=== PATIENT | male | born 1965 | race Two or more races ===

== ENCOUNTER 2016-11-15 08:30 | Outpatient (RCR) | payer OTHER ==
[~2016-11-15 08:30] MED LIST: /LOR25TA PO; AMIT50TA2 OR; ANAS0.12 OR; BENA10TA2 OR; CLEO150C PO; HYDR-3716 PO; LIDO5DIS TD; LYRI75CA PO; MULTIVIT PO; NORT25CA2 PO; TOPI50TA4 PO; TRAM50TA2 PO
== END 2016-11-16 ==
LOC: M PT 08:30
PROVIDERS: ATTEND Orthopaedic Surgery
DX: Z51.89 Encounter for other specified aftercare (principal); M25.551 Pain in right hip

== ENCOUNTER → 2017-05-19 | Outpatient (CLI) | payer OTHER ==
[~2017-05-19] MED LIST changes: -TOPI50TA4 PO; +TOPI50TA9 PO
--- NOTE | 2017-05-19 07:34 | REP ---
Clinical: Bladder dysfunction. Technique: Real time yañez scale ultrasound examination using curved array transducer. Findings: The bilateral kidneys are normal in contour, size, echogenicity, and reniform shape out hydronephrosis, nephrolithiasis, cystic or mass lesion. No perinephric fluid collections are identified. Right kidney measures 9.0 x 4.3 x 4.9 cm. Left kidney measures 10.0 x 4.7 x 4.5 cm. The bladder is unremarkable and without wall thickening or mass lesion. Prevoid bladder measures 9.0 x 8.5 x 7.9 cm (395 ml); postvoid bladder measures 2.4 x 1.7 x 3.2 cm (9 ml). Postvoid residual equals 2.1%. Impression: Normal renal and bladder ultrasound. Signed by Humberto Thomas MD 05/19/2017 07:25 A
== END ==
LOC: M RAD 06:41
PROVIDERS: ATTEND Nurse Practitioner Women's Health
DX: R39.11 Hesitancy of micturition (principal); N39.8 Other specified disorders of urinary system

== ENCOUNTER 2017-09-09 15:03 | Inpatient (IN) | payer OTHER ==
[~2017-09-09] VITALS: Ht 165.1 cm; Wt 61.3 kg
[2017-09-09] MEDS ORDERED: TAMSULOSIN (15:12)
[2017-09-09] MEDS ORDERED: MELO15TA4 PO (15:12)
[2017-09-09] MEDS ORDERED: NS 1,000 ML IV ONE (15:45)
[2017-09-09 15:52] LABS: BASO # 0.1 10^3/uL (0.0-0.2); BASO % 0.7 % (0.0-1.0); EOS # 0.2 10^3/uL (0.0-0.50); EOS % 1.4 % (0.0-3.0); LYMPH # 3.3 10^3/uL (1.5-4.5); LYMPH % 28.5 % (24.0-44.0); MEAN CORPUSCULAR HEMOGLOBIN 32.3 pg (27.0-33.0); MEAN CORPUSCULAR HGB CONC 34.5 g/dl (32.0-36.5); MEAN CORPUSCULAR VOLUME 93.4 fl (80.0-96.0); MONO # 0.8 10^3/uL (0.0-0.8); MONO % 6.5 % (0.0-5.0); NEUTROPHILS # 7.1 10^3/uL (1.8-7.7); NEUTROPHILS % 61.9 % (36.0-66.0); PLATELET COUNT, AUTOMATED 300 10^3/uL (150-450); RED CELL DISTRIBUTION WIDTH 13.3 % (11.5-14.5); WHITE BLOOD COUNT 11.5 10^3/uL (4.0-10.0)
--- NOTE | 2017-09-09 15:59 | REP ---
Clinical: Cerebrovascular accident. Altered mental status . Comparison: None . Findings: The ventricles, sulci, and cisterns are normal in position and appearance. Wright-white differentiation is maintained. No acute intracranial hemorrhage, mass/mass effect, pathology or trauma/injury. No evidence for acute infarction. No extra-axial fluid collection. Calvarium is intact. Paranasal sinuses and mastoid air cells are clear. Impression: Normal noncontrast head CT. No evidence for acute intracranial pathology or trauma/injury. Signed by Humberto Thomas MD 09/09/2017 03:50 P
[2017-09-09 16:01] LABS: INR 0.94
[2017-09-09 16:04] LABS: ANION GAP 6 MEQ/L (8-16); BLOOD UREA NITROGEN 30 MG/DL (7-18); CALCIUM LEVEL 8.5 MG/DL (8.5-10.1); CARBON DIOXIDE LEVEL 27 MEQ/L (21-32); CHLORIDE LEVEL 108 MEQ/L (98-107); CREATININE FOR GFR 1.27 MG/DL (0.70-1.30); GLOMERULAR FILTRATION RATE > 60.0 (>56); GLUCOSE, FASTING 101 MG/DL (70-105); POTASSIUM SERUM 3.8 MEQ/L (3.5-5.1); SODIUM LEVEL 141 MEQ/L (136-145)
[2017-09-09] MEDS ORDERED: ASPIRIN 81 MG CHEW TABLET PO ONE (16:15)
--- NOTE | 2017-09-09 17:12 | ECGEPIP ---
Stationary ECG Study [facility] - ED Test Date: 2017-09-09 Pat Name: JOHNATHON WATKINS Department: ED Room: - Gender: M Surveillance Investigator: dar : 1965 Requested By: Ophelia Gonzalez Order Number: [id number] Reading MD: Ophelia Gonzalez Measurements Intervals [place] Rate: 95 P: 65 IN: 196 QRS: 50 QRSD: 110 T: 61 QT: 329 QTc: 414 Interpretive Statements SINUS RHYTHM INDETERMINATE AXIS DELAYED R PROGRESSION NO PRIOR FOR COMPARISON Electronically Signed On 09-09-2017 17:12:14 EST by Ophelia Gonzalez
[2017-09-09] MEDS ORDERED: BISACODYL 5 MG TAB PO PRN (17:30)
--- NOTE | 2017-09-09 17:40 | REP ---
Clinical: Abnormal left-sided sensations Comparison: None Technique: Axial 3-D [id number] noncontrast source images with 3-D multiplanar re-formations. Findings: Vasculature to the bilateral hemispheres appears symmetric and normal without areas of attenuation to suggest occlusion or stenosis. No evidence for arteriovenous malformation or aneurysm. No obvious abnormality. Impression: No obvious significant abnormality. Signed by Humberto Thomas MD 09/09/2017 05:32 P
[2017-09-09] MEDS ORDERED: NORT75CA2 PO (17:56)
[2017-09-09] MEDS ORDERED: LYRI150C PO (17:56)
[2017-09-09] MEDS ORDERED: FLOM5CAP PO (17:56)
[2017-09-09] MEDS ORDERED: TOPI100T9 PO (17:56)
--- NOTE | 2017-09-09 17:57 | REP ---
Clinical: Abnormal left-sided sensations. Technique: Noncontrast MRI of the brain using standard sequencing. Findings: The ventricles, sulci, and cisterns are normal in appearance and symmetric. Wright-white differentiation is maintained. No signal intensity abnormalities are identified. No evidence for acute infarction, hemorrhage or mass. No extra-axial collection. Midbrain and midline structures are normal. Sinuses are clear. Orbits are symmetric and normal. Impression: Normal noncontrast MRI of the brain. Signed by Humberto Thomas MD 09/09/2017 05:49 P
[2017-09-09] MEDS ORDERED: BACITAB PO (17:58)
[2017-09-09] MEDS ORDERED: VITMTA PO (17:58)
--- NOTE | 2017-09-09 18:57 | HPEPDOC ---
General Date of Admission Sep 09, 2017 at 17:21 Primary Care Physician: Darrel Robbins [facility] Attending Physician: TICO MATHEWS MD Chief Complaint The patient is a 52-year-old male admitted with a reason for visit of Stroke. Source: Patient, Family Exam Limitations: No limitations Timing/Duration: 24 hours Severity: Mild History of Present Illness Patient is a 52-year-old white male with a past medical history of voiding dysfunction, chronic right groin pain from surgical injury, presents with numbness on his left side of his body. According to patient yesterday when he woke up in the morning he was not feeling well. He stated that he was a little bit dizzy, but denies night nausea, denies headache, denies blurred vision. He took a nap from 12 PM until 2 PM. When he awoke he noticed that his entire left side of his body was numb. The numbness extended from his great toe on his left side to his left eyebrow. It was specifically worse in his fingertips and worse on the lateral side of his left leg. His right side of body felt fine. Patient did not notice any other symptoms besides the numbness. He had normal muscle strength in bilateral upper extremity and lower extremity. He had intact sensation in upper and lower extremities. He denied weakness, denied headaches, denied blurred vision, loss of bowel or bladder function, denies garbled speech , denied difficulty finding words, denied any rashes, denied any abdominal pain. Patient states that everything was normal throughout the entire day of yesterday with exception of the numbness and was left-sided body. When he awoke up this morning he still have a numbing sensation on his left side of body. He presented to the ED this evening because he he feels that the numbness should have disappeared by now. Only other symptoms of note is a slight tingling sensation in his left fingers and left toes. Everything else is normal and at baseline on him. He denied any history of head trauma, he also denies any history of spinal trauma. Denies recent travels, denied any tick bites, denied any past medical history of STI infections. Denies any difficulty swallowing, denies any difficulty chewing. He denies difficulty walking. MRI and CT were both negative and ED. Home Medications Scheduled Acetaminophen/Hydrocodone (Hydrocodone/Acetaminophen 7.5-325 mg) 1 Tab Tab, 1 TAB PO TID, (Reported) Aspirin (Aspirin EC) 81 Mg Tabec, 81 MG PO DAILY Atorvastatin Calcium (Atorvastatin Calcium) 20 Mg Tab, 20 MG PO QHS Lactobacillus Acidophilus (Bacid) 1 Tab Tab, 1 TAB PO QHS, (Reported) Multivitamins *[facility] STOCKED* (Thera M Plus *[facility] STOCKED*) 1 Tab Tab, 1 TAB PO QHS , (Reported) Nortriptyline HCl (Nortriptyline HCl) 75 Mg Cap, 150 MG PO BID, (Reported) Pregabalin (Lyrica) 150 Mg Cap, 150 MG PO BID, (Reported) Tamsulosin Hydrochloride (Flomax) 0.4 Mg Cap, 0.4 MG PO QHS, (Reported) Topiramate (Topiramate) 100 Mg Tab, 100 MG PO BID, (Reported) Allergies Coded Allergies: Sulfa Drugs (Verified Allergy, Intermediate, BACTRIM- HIVES, 09/09/17) Sulfa Drugs Cross Reactors (Verified Allergy, Intermediate, BACTRIM- HIVES , 09/09/17) Penicillins (Verified Adverse Reaction, Mild, N/V, 09/09/17) Penicillins Cross Reactors (Verified Adverse Reaction, Mild, N/V, 09/09/17 ) Past Medical History Medical History Chronic right groin pain, voiding difficulty Surgical History Appendectomy, hernia repair 2, cholecystectomy, removal of adhesions from his stomach Family History Father has history of carotid artery disease and bypass surgery Social History * Smoker: current smoker (1-1/2 pack a day) Alcohol: occationally Drugs: denies Recent Travel/Sick Contacts: Denies: Recent travel, Recent sick contacts Pets in the home: Cat(s) (2 cats, and) Review of Systems Constitutional: Denies: Chills, Fever, Night Sweats Eyes: Denies: Pain, Vision change ENT: Denies: Head Aches, Ear Pain, Dysphagia Skin: Denies: Rash, Lesions, Breakdown Pulmonary: Denies: Dyspnea, Cough Cardiovascular: Denies: Chest Pain, Palpitations, Orthopnea, Paroxysmal Noc. Dyspnea, Lt Headedness Gastrointestinal: Denies: Nausea, Vomiting, Abdominal Pain, Diarrhea Genitourinary: Denies: Dysuria, Frequency, Incontinence, Retention Hematologic: Denies: Bruising, Bleeding Excessively Musculoskeletal: Denies: Neck Pain, Back Pain, Joint Pain, Muscle Pain, Spasms Neurological: Reports: Numbness (left sided numbness), Denies: Weakness, Change in speech, Confusion, Seizures Psych: Reports: Mood Normal, Denies: Depression, Memory Issues Physical Examination General Exam: Positive: Alert, No Acute Distress Eye Exam: Positive: PERRLA, Conjunctiva & lids normal, EOMI, Negative: Sclera icteric ENT Exam: Positive: Atraumatic, Mucous membr. moist/pink, Pharynx Normal Neck Exam: Positive: Supple, Negative: JVD, thyromegaly Chest Exam: Positive: Clear to auscultation, Normal air movement Heart Exam: Positive: Rate Normal, Regular Rhythm, Normal S1, Normal S2, Negative: Murmurs, Rubs Telemetry: Positive: No significant arrhythmia Abdomen Exam: Positive: Normal bowel sounds, Soft, Negative: Tenderness, Hepatospenomegaly Extremity Exam: Positive: Normal pulses, Negative: Clubbing, Cyanosis, Edema Skin Exam: Positive: Nl turgor and temperature, Negative: Breakdown, Lesion Neuro Exam: Positive: Normal Gait, Normal Speech, Cranial Nerves 3-12 NL, Reflexes 2+ Psych Exam: Positive: Mental status NL, Mood NL, Oriented x 3 Vital Signs Vital Signs Date Time Temp Pulse Resp B/P (MAP) Pulse Ox O2 Delivery O2 Flow Rate FiO2 09/09/17 16:39 144/102 (116) 09/09/17 16:33 80 97 09/09/17 15:04 97.9 16 Room Air Laboratory Data Labs 24H Laboratory Tests 2 09/09/17 15:32: Immature Granulocyte % (Auto) 1.0H, White Blood Count 11.5H, Red Blood Count 4.71, Hemoglobin 15.2, Hematocrit 44.0, Mean Corpuscular Volume 93.4, Mean Corpuscular Hemoglobin 32.3, Mean Corpuscular Hemoglobin Concent 34.5, Red Cell Distribution Width 13.3, Platelet Count 300, Neutrophils (%) (Auto) 61.9, Lymphocytes (%) (Auto) 28.5, Monocytes (%) (Auto) 6.5H, Eosinophils (%) (Auto) 1.4, Basophils (%) (Auto) 0.7, Neutrophils # (Auto) 7.1, Lymphocytes # (Auto) 3.3, Monocytes # (Auto) 0.8, Eosinophils # (Auto) 0.2, Basophils # (Auto) 0.1, Immature Granulocyte # (Auto) 0.1H, Nucleated Red Blood Cells % (auto) 0.0, Prothrombin Time 12.7, Prothromb Time International Ratio 0.94, Activated Partial Thromboplast Time 30.1, Anion Gap 6L, Glomerular Filtration Rate > 60.0 , Blood Urea Nitrogen 30H, Creatinine 1.27, Sodium Level 141, Potassium Level 3.8, Chloride Level 108H, Carbon Dioxide Level 27, Calcium Level 8.5, Total Creatine Kinase 105, Creatine Kinase MB 1.7, Creatine Kinase MB Relative Index 1.61, Troponin I < 0.02 CBC/BMP Laboratory Tests 09/09/17 15:32 Red Blood Count 4.71, Mean Corpuscular Volume 93.4, Mean Corpuscular Hemoglobin 32.3, Mean Corpuscular Hemoglobin Concent 34.5, Red Cell Distribution Width 13.3 , Neutrophils (%) (Auto) 61.9, Lymphocytes (%) (Auto) 28.5, Monocytes (%) (Auto ) 6.5 H, Eosinophils (%) (Auto) 1.4, Basophils (%) (Auto) 0.7, Neutrophils # ( Auto) 7.1, Lymphocytes # (Auto) 3.3, Monocytes # (Auto) 0.8, Eosinophils # (Auto ) 0.2, Basophils # (Auto) 0.1, Calcium Level 8.5, Total Creatine Kinase 105 Assessment/Plan TIA/Possible stroke -Unlikely given the fact that MRI is negative, MRA negative and , CT was negative. However may need to repeat MRi after 24 hours -Patient has no focal neurological deficit -will send lyme titers and CHAPIN level for sarcoid -Consider consultation neurology Infection -afebrile however he does have a white count of 11.5. Most likely reactive. -Order blood cultures Voiding difficulty -States that he voids 2-3 times a day, please monitor urine output to prevent patient from having acute kidney injury or hospital stay -Might consider intermittent catheterization should patient have difficulty voiding Plan / VTE VTE Prophylaxis Ordered?: Yes THERESA GARCIA DO Sep 09, 2017 18:48 TICO MATHEWS MD Sep 12, 2017 13:24
[2017-09-09 20:00] VITALS: BP 135/86
[2017-09-09] MEDS: NORTRIPTYLINE 25 MG CAP PO SCH (22:07)
[2017-09-09] MEDS: ANEXSIA, NORCO 7.5MG/325MG TABLET(HYDROCODONE/APAP) PO SCH (22:08)
[2017-09-09] MEDS: cloNIDine 0.1 MG TAB PO SCH (22:09)
[2017-09-09] MEDS: ATORVASTATIN 20 MG TAB PO SCH (22:10)
[2017-09-09] MEDS: SENOKOT S TAB PO SCH (22:10)
[2017-09-09] MEDS: TAMSULOSIN 0.4 MG CAP PO SCH (22:10)
[2017-09-09] MEDS: PREGABALIN 75 MG CAP(LYRICA) PO SCH (22:10)
[2017-09-09] MEDS: TOPIRAMATE (TopAMAX) 100 MG TAB PO SCH (22:11)
[2017-09-10] VITALS (7 sets, daily range): BP systolic 111–127; BP diastolic 57–78
[2017-09-10 05:13] LABS: BASO # 0.1 10^3/uL (0.0-0.2); BASO % 0.6 % (0.0-1.0); EOS # 0.2 10^3/uL (0.0-0.50); EOS % 1.9 % (0.0-3.0); IMMATURE GRANULOCYTE % 0.7 % (0-0); LYMPH # 2.9 10^3/uL (1.5-4.5); MEAN CORPUSCULAR HEMOGLOBIN 31.9 pg (27.0-33.0); MEAN CORPUSCULAR HGB CONC 33.8 g/dl (32.0-36.5); MEAN CORPUSCULAR VOLUME 94.4 fl (80.0-96.0); MONO # 0.8 10^3/uL (0.0-0.8); MONO % 6.9 % (0.0-5.0); NEUTROPHILS # 6.8 10^3/uL (1.8-7.7); NEUTROPHILS % 62.9 % (36.0-66.0); PLATELET COUNT, AUTOMATED 255 10^3/uL (150-450); RED CELL DISTRIBUTION WIDTH 13.5 % (11.5-14.5); WHITE BLOOD COUNT 10.8 10^3/uL (4.0-10.0)
[2017-09-10 05:32] LABS: ANION GAP 7 MEQ/L (8-16); BLOOD UREA NITROGEN 29 MG/DL (7-18); CALCIUM LEVEL 7.9 MG/DL (8.5-10.1); CARBON DIOXIDE LEVEL 24 MEQ/L (21-32); CHLORIDE LEVEL 111 MEQ/L (98-107); CREATININE FOR GFR 1.05 MG/DL (0.70-1.30); GLOMERULAR FILTRATION RATE > 60.0 (>56); GLUCOSE, FASTING 105 MG/DL (70-105); POTASSIUM SERUM 3.8 MEQ/L (3.5-5.1); SODIUM LEVEL 142 MEQ/L (136-145)
[2017-09-10] MEDS ORDERED: ACETAMINOPHEN 325 MG TAB PO PRN (08:45)
[2017-09-10] MEDS: NORTRIPTYLINE 25 MG CAP PO SCH (08:57)
[2017-09-10] MEDS: ASPIRIN 81 MG ENTERIC TAB PO SCH (08:58)
[2017-09-10] MEDS: SENOKOT S TAB PO SCH ×2 (08:58→21:35)
[2017-09-10] MEDS: TOPIRAMATE (TopAMAX) 100 MG TAB PO SCH ×2 (08:58→21:34)
[2017-09-10] MEDS: PREGABALIN 75 MG CAP(LYRICA) PO SCH ×2 (08:58→21:35)
[2017-09-10] MEDS: ANEXSIA, NORCO 7.5MG/325MG TABLET(HYDROCODONE/APAP) PO SCH ×3 (08:59→21:33)
[2017-09-10] MEDS: ENOXAPARIN 40 MG/0.4 ML SYRINGE (J1650) SC SCH (08:59)
[2017-09-10] MEDS: cloNIDine 0.1 MG TAB PO SCH ×3 (08:59→21:34)
[2017-09-10] MEDS ORDERED: NS 1,000 ML IV ONE (12:00)
--- NOTE | 2017-09-10 12:10 | IPNPDOC ---
Date Seen The patient was seen on 09/10/17. Progress Note Subjective: Patient is a 52-year-old white male with a past medical history of voiding dysfunction, chronic right groin pain from surgical injury, presented with numbness on his left side of his body. That started on 09/08/17 after waking up from a nap. The numbness is located to his left side, with a tingling sensation in his fingers and toes. Patient numbness remained constant throughout the day of delivery presented to the ED. This morning patient still has the same unilateral numbness has been unchanged since his original presentation. His muscle strength is still intact. Patient is neurologically intact. Patient's sensation is intact. On evaluation this morning patient did admit to a slight headache, however he denied blurry vision, denied a patent sensation in his head, denied muscle or body aches, denied any changes in vision, denied double vision. He was having breakfast and denied any swallowing difficulty, denied any difficulty speech. I ordered some Tylenol for patient headache. I plan to reevaluate him that assessment. At this point all his labs and images have been normal with the exception of an elevated BUN of 29. Objective: Physical exam: VITAL SIGNS: Please see below. GENERAL: Alert, in no acute distress, he does admit to a slight headache, orientated 3 very pleasant HEENT: Pupils round and equally reactive to light, atraumatic head, mucous membrane is moist and pink, oropharynx is normal, neck is supple, no JVD noted no thyromegaly CARDIOVASCULAR: S1 and S2 present within normal remits, no murmurs rubs or gallops detected RESPIRATORY: Clinically to auscultate anteriorly bilaterally no wheezes, rhonchi no wheezing. ABDOMINAL: Soft nontender bowel sounds present in all 4 quadrants EXTREMITIES: Soft, no cyanosis, no edema, warm NEUROLOGICAL: 5 out of 5 muscle strength intact sensation, PSYCHOLOGICAL: Appropriate mood, appropriate affect LABORATORY DATA: Please see below. MICROBIOLOGY: Please see below. IMAGING: Brain MRI: Normal noncontrast MRI of the brain. Head CT: Normal noncontrast head CT. No evidence for acute intracranial pathology or trauma/injury Assessment and Plan: Numbness and tingling of left side of face, left upper and lower extremity - possibly 2/2 complicated migraine, possibly 2/2 TIA, less likely 2/2 acute CVA -Pt symptoms is unchanged -Patient complains of headache, Tylenol was prescribe. Non concern about subarachnoid hematoma -Unlikely given the fact that MRI is negative, CT was negative -Patient has no focal neurological deficit -Neurology Consulted Elevated WBC - likely 2/2 reactive etiology, less likely 2/2 infection -Afebrile however he does have a white count of 10.8 -Blood cultures Pending Voiding difficulty -States that he voids 2-3 times a day -No issues throughout hospitalization Chronic abdominal pain - c/w home medications DVT prophylaxis - c/w Lovenox VS, I&O, 24H, Fishbone Vital Signs/I&O Vital Signs Date Time Temp Pulse Resp B/P (MAP) Pulse Ox O2 Delivery O2 Flow Rate FiO2 09/10/17 09:29 20 09/10/17 08:59 Room Air 09/10/17 08:59 116/71 09/10/17 08:00 98.0 55 99 I&O- Last 24 Hours up to 6 AM 09/10/17 06:00 Intake Total 1350 ml Output Total 600 ml Balance 750 ml Laboratory Data 24H LABS Laboratory Tests 2 09/09/17 15:32: Immature Granulocyte % (Auto) 1.0H, White Blood Count 11.5H, Red Blood Count 4.71, Hemoglobin 15.2, Hematocrit 44.0, Mean Corpuscular Volume 93.4, Mean Corpuscular Hemoglobin 32.3, Mean Corpuscular Hemoglobin Concent 34.5, Red Cell Distribution Width 13.3, Platelet Count 300, Neutrophils (%) (Auto) 61.9, Lymphocytes (%) (Auto) 28.5, Monocytes (%) (Auto) 6.5H, Eosinophils (%) (Auto) 1.4, Basophils (%) (Auto) 0.7, Neutrophils # (Auto) 7.1, Lymphocytes # (Auto) 3.3, Monocytes # (Auto) 0.8, Eosinophils # (Auto) 0.2, Basophils # (Auto) 0.1, Immature Granulocyte # (Auto) 0.1H, Nucleated Red Blood Cells % (auto) 0.0, Prothrombin Time 12.7, Prothromb Time International Ratio 0.94, Activated Partial Thromboplast Time 30.1, Anion Gap 6L, Glomerular Filtration Rate > 60.0 , Blood Urea Nitrogen 30H, Creatinine 1.27, Sodium Level 141, Potassium Level 3.8, Chloride Level 108H, Carbon Dioxide Level 27, Calcium Level 8.5, Total Creatine Kinase 105, Creatine Kinase MB 1.7, Creatine Kinase MB Relative Index 1.61, Troponin I < 0.02 09/09/17 19:26: Ammonia 25 09/10/17 04:45: Immature Granulocyte % (Auto) 0.7H, White Blood Count 10.8H, Red Blood Count 4.32, Hemoglobin 13.8L, Hematocrit 40.8L, Mean Corpuscular Volume 94.4, Mean Corpuscular Hemoglobin 31.9, Mean Corpuscular Hemoglobin Concent 33.8, Red Cell Distribution Width 13.5, Platelet Count 255, Neutrophils (%) (Auto) 62.9, Lymphocytes (%) (Auto) 27.0, Monocytes (%) (Auto) 6.9H, Eosinophils (%) (Auto) 1.9, Basophils (%) (Auto) 0.6, Neutrophils # (Auto) 6.8, Lymphocytes # (Auto) 2.9, Monocytes # (Auto) 0.8, Eosinophils # (Auto) 0.2, Basophils # (Auto) 0.1, Immature Granulocyte # (Auto) 0.1H, Nucleated Red Blood Cells % (auto) 0.0, Anion Gap 7L, Glomerular Filtration Rate > 60.0, Blood Urea Nitrogen 29H, Creatinine 1.05, Sodium Level 142, Potassium Level 3.8, Chloride Level 111H, Carbon Dioxide Level 24, Calcium Level 7.9L CBC/BMP Laboratory Tests 09/09/17 15:32 Red Blood Count 4.71, Mean Corpuscular Volume 93.4, Mean Corpuscular Hemoglobin 32.3, Mean Corpuscular Hemoglobin Concent 34.5, Red Cell Distribution Width 13.3 , Neutrophils (%) (Auto) 61.9, Lymphocytes (%) (Auto) 28.5, Monocytes (%) (Auto ) 6.5 H, Eosinophils (%) (Auto) 1.4, Basophils (%) (Auto) 0.7, Neutrophils # ( Auto) 7.1, Lymphocytes # (Auto) 3.3, Monocytes # (Auto) 0.8, Eosinophils # (Auto ) 0.2, Basophils # (Auto) 0.1, Calcium Level 8.5, Total Creatine Kinase 105 09/10/17 04:45 Red Blood Count 4.32, Mean Corpuscular Volume 94.4, Mean Corpuscular Hemoglobin 31.9, Mean Corpuscular Hemoglobin Concent 33.8, Red Cell Distribution Width 13.5 , Neutrophils (%) (Auto) 62.9, Lymphocytes (%) (Auto) 27.0, Monocytes (%) (Auto ) 6.9 H, Eosinophils (%) (Auto) 1.9, Basophils (%) (Auto) 0.6, Neutrophils # ( Auto) 6.8, Lymphocytes # (Auto) 2.9, Monocytes # (Auto) 0.8, Eosinophils # (Auto ) 0.2, Basophils # (Auto) 0.1, Calcium Level 7.9 L Microbiology Microbiology 09/09/17 Blood Culture, Received Pending GME ATTESTATION GME ATTESTATION My faculty preceptor for this patient encounter was physically present during the encounter and was fully available. All aspects of the patient interview, examination, medical decision making process, and medical care plan development were reviewed and approved by the faculty preceptor. The faculty preceptor is aware and concurs with the plan as stated in the body of this note and will attest to such by his/her cosignature. ATTENDING NOTE I, Caroline Green, have both independently examined this patient as well as reviewed the documentation. I have discussed in detail with the resident the findings and plan of treatment as documented in the residents documentation. I will continue to follow the patient and offer further guidance to the patients care as necessary during this hospital stay. THERESA GARCIA DO Sep 10, 2017 11:19 CAROLINE GREEN MD Sep 11, 2017 15:16
[2017-09-10] MEDS: TAMSULOSIN 0.4 MG CAP PO SCH (21:35)
[2017-09-10] MEDS: ATORVASTATIN 20 MG TAB PO SCH (21:35)
[2017-09-11 04:00] VITALS: BP 103/68
[2017-09-11 05:06] LABS: BASO # 0.1 10^3/uL (0.0-0.2); BASO % 0.6 % (0.0-1.0); EOS # 0.2 10^3/uL (0.0-0.50); EOS % 1.9 % (0.0-3.0); IMMATURE GRANULOCYTE % 0.7 % (0-0); LYMPH # 2.9 10^3/uL (1.5-4.5); LYMPH % 28.3 % (24.0-44.0); MEAN CORPUSCULAR HEMOGLOBIN 31.9 pg (27.0-33.0); MEAN CORPUSCULAR HGB CONC 33.3 g/dl (32.0-36.5); MEAN CORPUSCULAR VOLUME 95.7 fl (80.0-96.0); MONO # 0.8 10^3/uL (0.0-0.8); MONO % 7.5 % (0.0-5.0); NEUTROPHILS # 6.2 10^3/uL (1.8-7.7); PLATELET COUNT, AUTOMATED 244 10^3/uL (150-450); RED CELL DISTRIBUTION WIDTH 13.9 % (11.5-14.5); WHITE BLOOD COUNT 10.1 10^3/uL (4.0-10.0)
[2017-09-11 05:25] LABS: ANION GAP 6 MEQ/L (8-16); BLOOD UREA NITROGEN 30 MG/DL (7-18); CALCIUM LEVEL 7.8 MG/DL (8.5-10.1); CARBON DIOXIDE LEVEL 24 MEQ/L (21-32); CHLORIDE LEVEL 113 MEQ/L (98-107); CREATININE FOR GFR 1.21 MG/DL (0.70-1.30); GLOMERULAR FILTRATION RATE > 60.0 (>56); GLUCOSE, FASTING 98 MG/DL (70-105); SODIUM LEVEL 143 MEQ/L (136-145)
[2017-09-11 08:00] VITALS: BP 126/75
[2017-09-11] MEDS ORDERED: ATOR1TAB21 PO (08:21)
[2017-09-11] MEDS ORDERED: ASPI81TAEC PO (08:21)
[2017-09-11 09:00] VITALS: BP 126/75
[2017-09-11] MEDS: ENOXAPARIN 40 MG/0.4 ML SYRINGE (J1650) SC SCH (09:00)
[2017-09-11] MEDS: cloNIDine 0.1 MG TAB PO SCH (09:00)
[2017-09-11] MEDS: SENOKOT S TAB PO SCH (09:05)
[2017-09-11] MEDS: PREGABALIN 75 MG CAP(LYRICA) PO SCH (09:05)
[2017-09-11] MEDS: TOPIRAMATE (TopAMAX) 100 MG TAB PO SCH (09:06)
[2017-09-11] MEDS: ANEXSIA, NORCO 7.5MG/325MG TABLET(HYDROCODONE/APAP) PO SCH (09:07)
[2017-09-11] MEDS: ASPIRIN 81 MG ENTERIC TAB PO SCH (09:07)
--- NOTE | 2017-09-11 18:12 | DSES ---
DATE OF ADMISSION: 09/09/2017 DATE OF DISCHARGE: 09/11/2017 ATTENDING PHYSICIAN: Caroline Dawkins MD. PRIMARY CARE PHYSICIAN: Darrel Robbins. REFERRING PHYSICIAN: None. CONSULTING PHYSICIAN: Dr. Lao. CONDITION ON DISCHARGE: Stable. FINAL DIAGNOSIS: Left-sided facial numbness and tingling and left upper and lower extremity numbness and tingling, likely secondary to complex migraine with aura. PROCEDURES: None. HISTORY OF PRESENT ILLNESS: The patient is a 52-year-old male with a past medical history of urinary retention, chronic right groin pain, who presented with numbness on the left side of his body, including his face. The patient was evaluated in the emergency room, received an MRI and MRA of his brain which were negative. The patient was admitted to the hospitalist service for possible transient ischemic attack (TIA) versus migraine headache. HOSPITAL COURSE: 1. Numbness and tingling of face, left upper extremity and left lower extremity: Likely secondary to complicated migraine with aura, less likely secondary to TIA. Less likely secondary to cerebrovascular accident (CVA). The patient presented to symptoms that had been going on since . Had been persistent since that point. Physical is without any neurologic deficit. The patient does note subjective numbness and tingling of the left side of his face. The patient received imaging via CT head, MRI and MRA of his head, which have been negative. CT scan is essentially normal noncontrast head CT. No evidence for intracranial pathology or trauma. MRI of head reveals normal, noncontrast MRI of the brain, and the MRA revealed no obvious significant abnormalities. The patient has been put on telemetry monitoring for greater than 24 hours duration. Has been negative for any events. The patient has been put on aspirin 81 mg, as well as atorvastatin. He will be continuing these medications as an outpatient. Neurology, Dr. Lao, has evaluated the patient and we suspect that this is likely secondary to complicated migraine with aura. Nevertheless, the patient will be following up as an outpatient and has been cleared for discharge. 2. Leukocytosis, likely reactive in etiology: Review of systems has been negative for any source of infection. The patient has not been having any fevers. We will continue to hold off on antibiotics. Has been trending down throughout the hospital course. 3. Voiding difficulty: The patient is not having any issues throughout the hospitalization. His kidney function has remained normal. Will continue to followup as an outpatient with his primary care provider. 4. Deep venous thrombosis (DVT) prophylaxis: The patient has been put on Lovenox subcutaneous. 5. Chronic abdominal pain. Continue with home medications including topiramate, Lyrica, nortriptyline, and acetaminophen with hydrocodone. DISCHARGE MEDICATIONS: The patient has been discharged home with the following medication list: - aspirin 81 mg by mouth daily - atorvastatin 20 mg by mouth daily - acetaminophen/hydrocodone 7.5/325 one tablet by mouth three times a day as needed for pain - lactobacillus with pseudobacillus one tablet by mouth at bedtime - multivitamin one tablet by mouth at bedtime - nortriptyline 150 mg by mouth twice a day - Lyrica 150 mg by mouth twice a day - tamsulosin 0.4 mg by mouth at bedtime - topiramate 100 mg by mouth twice a day Stopped medications include meloxicam 15 mg by mouth at bedtime. DISCHARGE INSTRUCTIONS: Patient has been advised to followup with his primary care provider who is Dr. Darrel Robbins, as well as neurology, Dr. Lao, within the next seven days. He has been advised to remain compliant with treatment plan and medications, and to return to the emergency room if he experiences any problems. TIME SPENT ON DISCHARGE: Greater than 35 minutes.
[2017-09-11] MEDS ORDERED: NORTRIPTYLINE 25 MG CAP PO SCH (21:00)
--- NOTE | 2017-09-13 12:25 | CR ---
DATE OF CONSULTATION: REFERRING PROVIDER: Dr. Caroline Dawkins REASON FOR CONSULTATION: Possible complex migraine versus transient ischemic attack (TIA). The patient is a 52-year-old male with past medical history significant for chronic groin pain after an inguinal hernia surgery. The patient presents with the chief complaint of experiencing one of his worst headaches. The patient started to not feel well, took a nap and woke up a few days ago with symptoms of left face, arm and leg paresthesias. The patient states that he agrees with the doctors that his facial weakness is present of the left lower face, sparing the forehead. The patient did have an MRI which was negative for any stroke. He did have the worst headache the night of his admission. It was throbbing in nature. The patient likely had a complex migraine resulting in hemiparesis of the left hand and face with hypoesthesia to light touch of the left face, arm and leg. During the hospital stay, the headache has significantly improved. The symptoms have all significantly improved. The patient has been on telemetry monitoring. He was placed on aspirin 81 mg. He is a smoker. He has been counseled to quit. He denies having any other stroke-like symptoms. ALLERGIES: - SULFA - PENICILLIN PRESENT MEDICATIONS: - Nortriptyline 75 mg tablets by mouth twice a day - Lyrica 150 mg by mouth twice a day - tamsulosin 0.4 mg by mouth at bedtime - topiramate 100 mg by mouth twice a day - multivitamin by mouth daily - meloxicam 15 mg by mouth at bedtime - lactobacillus 1 tablet by mouth at bedtime - hydrocodone/acetaminophen 7.5/325 mg by mouth three times a day as needed for pain SOCIAL HISTORY: The patient currently smokes one and a half-pack of tobacco per day. Denies use of any recreational drugs or alcohol. FAMILY HISTORY: Noncontributory. PAST MEDICAL HISTORY: Chronic right flank pain. Voiding difficulty. PAST SURGICAL HISTORY: 1. Appendectomy. 2. Hernia repair times two. 3. Cholecystectomy. 4, Removal of adhesions from his stomach. REVIEW OF SYSTEMS: 14-point review of systems negative except as per history of present illness (HPI). PHYSICAL EXAMINATION: Blood pressure 117/74, pulse rate 62, respiratory rate is 18, temperature is 98.8 degrees Fahrenheit, oxygenation 97% on room air. The patient is awake, alert, oriented to person, place and time. Speech, language comprehension and repetition are intact. Pupils are 3 mm round and reactive to light. V1, V2, and V3 is slightly decreased to light touch involving the left V2-V3 in a patchy distribution. V1 is spared. Biceps sensation of the left arm and leg appear to be within normal limits. There is no pronator drift. Strength is 5/5 including bilateral deltoid, biceps, triceps, handgrip, iliopsoas, quadriceps, anterior tibialis. Deep tendon reflexes are 2s throughout. Babinski signs are absent. Sensory is intact to light touch in all four extremities at this time. Coordination: Normal [id number], without any signs of ataxia or dysmetria. Gait normal. ASSESSMENT: 52-year-old male with transient left facial paresthesias and slight weakness of the left lower face and hand weakness with a negative MRI with one of his worst headaches, consistent with a hemiplegic migraine/complex migraine. PLAN: Continue aspirin 81 mg daily. Discontinue tobacco use. The patient will continue with Nortriptyline, topiramate and Lyrica, which all have properties to treat migraines. 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 The patient can followup in [facility] upon discharge.
[2017-09-14 00:06] LABS: Lyme Disease IgG/IgM Antibodie <0.91 ISR (0.00-0.90); Lyme Disease IgM Ab Quantitati <0.80 index (0.00-0.79)
== END 2017-09-11 11:35 | disposition home or self-care (01) | DRG 54 ==
LOC: M ED 15:03 → M ED INP 17:21 → M PCU 20:11
PROVIDERS: ADMIT Internal Medicine Nephrology; ATTEND Internal Medicine
DX: G43.109 Migraine with aura, not intractable, without status migrainosus (principal); D72.829 Elevated white blood cell count, unspecified; R10.9 Unspecified abdominal pain; Z79.82 Long term (current) use of aspirin; Z79.899 Other long term (current) drug therapy; Z88.0 Allergy status to penicillin; Z88.2 Allergy status to sulfonamides; F17.200 Nicotine dependence, unspecified, uncomplicated; R20.0 Anesthesia of skin

== ENCOUNTER → 2018-06-06 | Outpatient (REF) | payer OTHER ==
[2018-06-06 19:39] LABS: HEMATOCRIT 41.2 % (42.0-52.0); HEMOGLOBIN 13.6 g/dl (13.5-17.5); MEAN CORPUSCULAR HEMOGLOBIN 31.5 pg (27.0-33.0); MEAN CORPUSCULAR VOLUME 95.4 fl (80.0-96.0); PLATELET COUNT, AUTOMATED 254 10^3/uL (150-450); RED BLOOD COUNT 4.32 10^6/uL (4.30-6.10); RED CELL DISTRIBUTION WIDTH 14.3 % (11.5-14.5); WHITE BLOOD COUNT 7.6 10^3/uL (4.0-10.0)
[2018-06-06 20:06] LABS: ALBUMIN 3.7 GM/DL (3.2-5.2); ALBUMIN/GLOBULIN RATIO 1.06 (1.00-1.93); ALKALINE PHOSPHATASE 75 U/L (45-117); ALT/SGPT 45 U/L (12-78); ANION GAP 10 MEQ/L (8-16); AST/SGOT 35 U/L (7-37); BILIRUBIN,TOTAL 0.3 MG/DL (0.2-1.0); BLOOD UREA NITROGEN 18 MG/DL (7-18); CALCIUM LEVEL 8.5 MG/DL (8.5-10.1); CARBON DIOXIDE LEVEL 23 MEQ/L (21-32); CHLORIDE LEVEL 112 MEQ/L (98-107); CHOLESTEROL LEVEL 135 MG/DL (<200); CHOLESTEROL RISK RATIO 2.368 (<5); CREATININE FOR GFR 1.22 MG/DL (0.70-1.30); FREE T4 0.84 NG/DL (0.76-1.46); GLOMERULAR FILTRATION RATE > 60.0 (>56); GLUCOSE, FASTING 66 MG/DL (70-100); HDL CHOLESTEROL 57 MG/DL (>40); LDL CHOLESTEROL 29 MG/DL (<100); NON-HDL-C 78 MG/DL; POTASSIUM SERUM 3.4 MEQ/L (3.5-5.1); SODIUM LEVEL 145 MEQ/L (136-145); TOTAL PROTEIN 7.2 GM/DL (6.4-8.2); TRIGLYCERIDES LEVEL 247 MG/DL (<150)
[2018-06-06 20:18] LABS: FOLATE 16.7 NG/ML; TOTAL 25(OH) VITAMIN D 37.4 NG/ML (30.0-100.0)
== END ==
LOC: M SFHCADAM 15:07
DX: R40.0 Somnolence (principal); R53.82 Chronic fatigue, unspecified; Z86.73 Personal history of transient ischemic attack (TIA), and cerebral infarction without residual deficits

== ENCOUNTER → 2018-07-07 | Outpatient (REF) | payer OTHER ==
[2018-07-07 13:20] LABS: ANION GAP 10 MEQ/L (8-16); BLOOD UREA NITROGEN 24 MG/DL (7-18); CALCIUM LEVEL 9.4 MG/DL (8.5-10.1); CARBON DIOXIDE LEVEL 25 MEQ/L (21-32); CHLORIDE LEVEL 108 MEQ/L (98-107); GLOMERULAR FILTRATION RATE > 60.0 (>56); GLUCOSE, FASTING 83 MG/DL (70-100); POTASSIUM SERUM 3.9 MEQ/L (3.5-5.1); SODIUM LEVEL 143 MEQ/L (136-145)
== END ==
LOC: M SFHCADAM 09:07
DX: E87.6 Hypokalemia (principal)
CPT/HCPCS: 80048

== ENCOUNTER → 2018-12-05 | Outpatient (REF) ==
[~2018-12-05] MED LIST changes: +ASPI81TAEC PO; +ATOR1TAB21 PO; +BACITAB PO; +FLOM0.4C39 PO; +LYRI150C PO; +MELO15TA28 PO; +NORT75CA2 PO; +TAMSULOSIN; +TOPI100T9 PO; +VITMTA PO
--- NOTE | 2018-12-06 03:09 | REP ---
Clinical: Pain and disability. Technique: Single AP view of the pelvis. Findings: No acute fracture dislocation. Hip joints demonstrate symmetric mild subchondral sclerosis, minimal joint space narrowing, and marginal spurring. Surgical raul overlie the right kisha pelvis. Surrounding soft tissues unremarkable. 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 Electronically Signed by Humberto Thomas MD 12/06/2018 03:01 A
--- NOTE | 2018-12-06 03:26 | REP ---
Clinical: Pain and disability. Technique: AP, lateral, bilateral oblique and sunrise views of the right knee. Findings: Mild age-related changes include very subtle increase sclerosis along the tibial plateau. The tibiofemoral and patellofemoral joint spaces appear relatively intact. No acute fracture dislocation. No periarticular calcifications or loose bodies are identified. No effusion. Impression: Mild age-related changes. Electronically Signed by Humberto Thomas MD 12/06/2018 03:18 A
== END ==
LOC: M SMT 10:10
PROVIDERS: ATTEND Internal Medicine
DX: Z02.71 Encounter for disability determination (principal)

== ENCOUNTER → 2018-12-22 | Outpatient (REF) | payer OTHER ==
[2018-12-22 19:13] LABS: BLOOD UREA NITROGEN 17 MG/DL (7-18); CALCIUM LEVEL 8.6 MG/DL (8.5-10.1); CARBON DIOXIDE LEVEL 24 MEQ/L (21-32); CHLORIDE LEVEL 111 MEQ/L (98-107); CPK CREATINE PHOSPHOKINASE 130 U/L (39-308); CREATININE FOR GFR 1.25 MG/DL (0.70-1.30); GLOMERULAR FILTRATION RATE > 60.0 (>56); GLUCOSE, FASTING 86 MG/DL (70-100); POTASSIUM SERUM 3.9 MEQ/L (3.5-5.1); SODIUM LEVEL 142 MEQ/L (136-145)
[2018-12-22 19:22] LABS: FOLATE 18.7 NG/ML; TOTAL 25(OH) VITAMIN D 20.8 NG/ML (30.0-100.0); VITAMIN B12 LEVEL 525 PG/ML
== END ==
LOC: M SFHCADAM 13:50
PROVIDERS: ATTEND Physician Assistant
DX: M54.32 Sciatica, left side (principal)

== ENCOUNTER → 2019-01-19 | Outpatient (REF) | payer OTHER | LOC: M SFHCADAM 12:18 | PROVIDERS: ATTEND Physician Assistant | DX: R10.33 Periumbilical pain (principal); G89.4 Chronic pain syndrome ==

== ENCOUNTER 2019-02-19 21:13 | Emergency (ER) | payer OTHER ==
[~2019-02-19] VITALS: Ht 165.1 cm; Wt 64.5 kg
[2019-02-19 21:14] VITALS: BP 136/68
[2019-02-19] MEDS ORDERED: VERA40TA (23:21)
[2019-02-19] MEDS ORDERED: ONDA4TAB6 (23:21)
[2019-02-19] MEDS ORDERED: MELO15TA28 (23:21)
[2019-02-19] MEDS ORDERED: AJOV225I (23:21)
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
[2019-02-20] MEDS ORDERED: METOCLOPRAMIDE INJ 10MG/2ML VIAL (J2765) IV ONE (00:45)
[2019-02-20] MEDS ORDERED: KETOROLAC 30 MG/ML VIAL (J1885) IV ONE (00:45)
[2019-02-20] MEDS ORDERED: NS 1,000 ML IV ONE (00:45)
[2019-02-20] MEDS ORDERED: dexameTHASONE 20 MG/5 ML VIAL (J1100) IV ONE (01:15)
[2019-02-20] MEDS ORDERED: NAPR-837 PO (02:09)
[2019-02-20] MEDS ORDERED: PRED20TA PO (02:09)
[2019-02-20] MEDS ORDERED: REGL10TA6 PO (02:09)
[2019-02-20] MEDS ORDERED: diphenhydrAMINE 50 MG CAP PO ONE (02:15)
== END 2019-02-20 02:20 | disposition home or self-care (01) ==
LOC: M ED 21:13
DX: M31.6 Other giant cell arteritis (principal); R51 Headache; H53.8 Other visual disturbances; M85.88 Other specified disorders of bone density and structure, other site; W22.8XXS Striking against or struck by other objects, sequela; Y92.410 Unspecified street and highway as the place of occurrence of the external cause; Y93.89 Activity, other specified; Y99.9 Unspecified external cause status; I10 Essential (primary) hypertension; Z72.0 Tobacco use; Z79.82 Long term (current) use of aspirin; Z79.899 Other long term (current) drug therapy; Z88.0 Allergy status to penicillin; Z88.2 Allergy status to sulfonamides
CPT/HCPCS: 70450; 72125; 85652; 96361; 96374; 96375; 99284; J1100; J1885; J2765

== ENCOUNTER → 2019-02-22 | Outpatient (CLI) | payer OTHER ==
[~2019-02-22] MED LIST changes: +AJOV225I; +MELO15TA28; +NAPR-837 PO; +ONDA4TAB6; +PRED20TA PO; +REGL10TA6 PO; +VERA40TA
--- NOTE | 2019-02-22 12:36 | REP ---
Chest two views HISTORY: Pneumonia Comparison: 03/01/2013 The lungs are clear. The heart is normal in size. The pulmonary vasculature is normal in appearance. The bony structure is intact. IMPRESSION: No acute disease. Electronically Signed by Sean Smith MD 02/22/2019 12:28 P
== END ==
LOC: M WUC 11:39
PROVIDERS: ATTEND Nurse Practitioner Family
DX: J18.1 Lobar pneumonia, unspecified organism (principal)

== ENCOUNTER → 2019-02-22 | Outpatient (REF) | payer OTHER ==
[2019-02-22 13:45] LABS: BASO # 0.1 10^3/uL (0.0-0.2); BASO % 0.3 % (0.0-1.0); HEMATOCRIT 38.9 % (42.0-52.0); HEMOGLOBIN 12.9 g/dl (13.5-17.5); LYMPH # 1.8 10^3/uL (1.5-4.5); LYMPH % 7.8 % (24.0-44.0); MEAN CORPUSCULAR HEMOGLOBIN 31.6 pg (27.0-33.0); MEAN CORPUSCULAR HGB CONC 33.2 g/dl (32.0-36.5); MEAN CORPUSCULAR VOLUME 95.3 fl (80.0-96.0); MONO # 1.9 10^3/uL (0.0-0.8); NEUTROPHILS # 19.1 10^3/uL (1.8-7.7); NEUTROPHILS % 81.8 % (36.0-66.0); PLATELET COUNT, AUTOMATED 334 10^3/uL (150-450); RED BLOOD COUNT 4.08 10^6/uL (4.30-6.10); WHITE BLOOD COUNT 23.3 10^3/uL (4.0-10.0)
== END ==
LOC: M SFHCPLAZ 10:52
PROVIDERS: ATTEND Nurse Practitioner Family
DX: J18.1 Lobar pneumonia, unspecified organism (principal)

== ENCOUNTER → 2019-03-13 | Outpatient (REF) | payer OTHER ==
[2019-03-13 12:27] LABS: BASO # 0.1 10^3/uL (0.0-0.2); EOS # 0.3 10^3/uL (0.0-0.50); EOS % 3.5 % (0.0-3.0); HEMATOCRIT 38.1 % (42.0-52.0); HEMOGLOBIN 12.3 g/dl (13.5-17.5); LYMPH # 2.6 10^3/uL (1.5-4.5); LYMPH % 33.7 % (24.0-44.0); MEAN CORPUSCULAR HEMOGLOBIN 31.5 pg (27.0-33.0); MEAN CORPUSCULAR HGB CONC 32.3 g/dl (32.0-36.5); MEAN CORPUSCULAR VOLUME 97.7 fl (80.0-96.0); MONO # 0.7 10^3/uL (0.0-0.8); MONO % 9.3 % (0.0-5.0); NEUTROPHILS % 52.1 % (36.0-66.0); PLATELET COUNT, AUTOMATED 218 10^3/uL (150-450); WHITE BLOOD COUNT 7.6 10^3/uL (4.0-10.0)
[2019-03-13 12:36] LABS: C REACTIVE PROTEIN QUANTITATIV < 0.30 MG/DL (0.00-0.30); TOTAL PROTEIN 6.3 GM/DL (6.4-8.2)
[2019-03-13 12:55] LABS: ERYTHROCYTE SEDIMENTATION RATE 18 mm/hr (0-20)
[2019-03-15 12:06] LABS: ALBUMIN 3.31 GM/DL (3.29-5.55); ALBUMIN % 52.6 % (55.8-66.1); ALPHA-1-GLOBULINS 0.32 GM/DL (0.17-0.41); ALPHA-2-GLOBULINS 0.78 GM/DL (0.42-0.99); ALPHA-2-GLOBULINS % 12.4 % (7.1-11.8); BETA-1-GLOBULINS 0.45 GM/DL (0.28-0.60); BETA-1-GLOBULINS % 7.1 % (4.7-7.2); BETA-2-GLOBULINS 0.49 GM/DL (0.19-0.55); BETA-2-GLOBULINS % 7.7 % (3.2-6.5); GAMMA GLOBULIN % 15.2 % (11.1-18.8); GAMMA GLOBULINS 0.96 GM/DL (0.65-1.58)
== END ==
LOC: M SFHCPLAZ 09:39
PROVIDERS: ATTEND Internal Medicine Rheumatology
DX: R51 Headache (principal); R70.0 Elevated erythrocyte sedimentation rate

== ENCOUNTER → 2019-04-12 | Outpatient (REF) | payer OTHER | LOC: M SFHCPLAZ 17:05 | PROVIDERS: ATTEND Dermatology | DX: L60.3 Nail dystrophy (principal) ==

== ENCOUNTER → 2019-11-01 | Outpatient (REF) | payer OTHER ==
[2019-11-01 14:39] LABS: ALBUMIN 3.2 GM/DL (3.2-5.2); ALT/SGPT 31 U/L (12-78); BILIRUBIN,TOTAL 0.3 MG/DL (0.2-1.0); BLOOD UREA NITROGEN 24 MG/DL (7-18); CALCIUM LEVEL 8.7 MG/DL (8.5-10.1); CARBON DIOXIDE LEVEL 28 MEQ/L (21-32); CHLORIDE LEVEL 108 MEQ/L (98-107); CHOLESTEROL LEVEL 146 MG/DL (<200); CHOLESTEROL RISK RATIO 3.318 (<5); CREATININE FOR GFR 1.01 MG/DL (0.70-1.30); FERRITIN 138 NG/ML (26-388); GLOMERULAR FILTRATION RATE > 60.0 (>56); GLUCOSE, FASTING 87 MG/DL (70-100); HDL CHOLESTEROL 44 MG/DL (>40); IRON (FE) 97 UG/DL (65-175); LDL CHOLESTEROL 64 MG/DL (<100); NON-HDL-C 102 MG/DL; PERCENT SATURATION 31.4 % (19.7-50.0); POTASSIUM SERUM 3.5 MEQ/L (3.5-5.1); SODIUM LEVEL 142 MEQ/L (136-145); TOTAL IRON BINDING CAPACITY 309 UG/DL (250-450); TOTAL PROTEIN 6.9 GM/DL (6.4-8.2); TRIGLYCERIDES LEVEL 188 MG/DL (<150)
[2019-11-01 14:46] LABS: TOTAL 25(OH) VITAMIN D 41.8 NG/ML (30.0-100.0)
[2019-11-01 14:55] LABS: BASO # 0.1 10^3/uL (0.0-0.2); BASO % 0.9 % (0.0-1.0); EOS # 0.4 10^3/uL (0.0-0.5); EOS % 3.8 % (0.0-3.0); HEMATOCRIT 44.3 % (42.0-52.0); HEMOGLOBIN 14.6 g/dl (13.5-17.5); LYMPH # 3.2 10^3/uL (1.5-5.0); LYMPH % 31.1 % (24.0-44.0); MEAN CORPUSCULAR HEMOGLOBIN 32.2 pg (27.0-33.0); MEAN CORPUSCULAR VOLUME 97.6 fl (80.0-96.0); MONO # 0.9 10^3/uL (0.0-0.8); MONO % 8.5 % (0.0-5.0); NEUTROPHILS # 5.6 10^3/uL (1.5-8.5); NEUTROPHILS % 53.7 % (36.0-66.0); PLATELET COUNT, AUTOMATED 378 10^3/uL (150-450); RED BLOOD COUNT 4.54 10^6/uL (4.30-6.10); WHITE BLOOD COUNT 10.4 10^3/uL (4.0-10.0)
== END ==
LOC: M SFHCADAM 09:48
PROVIDERS: ATTEND Physician Assistant
DX: Z12.5 Encounter for screening for malignant neoplasm of prostate (principal); F11.90 Opioid use, unspecified, uncomplicated; F17.210 Nicotine dependence, cigarettes, uncomplicated; D64.9 Anemia, unspecified; E78.00 Pure hypercholesterolemia, unspecified; G89.4 Chronic pain syndrome; E55.9 Vitamin D deficiency, unspecified

== ENCOUNTER → 2019-11-22 | Outpatient (REF) | payer OTHER ==
[2019-11-22 12:48] LABS: BASO # 0.1 10^3/uL (0.0-0.2); BASO % 0.8 % (0.0-1.0); EOS # 0.4 10^3/uL (0.0-0.5); EOS % 4.3 % (0.0-3.0); HEMATOCRIT 46.3 % (42.0-52.0); HEMOGLOBIN 15.3 g/dl (13.5-17.5); LYMPH # 3.5 10^3/uL (1.5-5.0); LYMPH % 41.7 % (24.0-44.0); MEAN CORPUSCULAR HEMOGLOBIN 32.3 pg (27.0-33.0); MEAN CORPUSCULAR VOLUME 97.9 fl (80.0-96.0); MONO # 0.7 10^3/uL (0.0-0.8); MONO % 8.4 % (0.0-5.0); NEUTROPHILS # 3.7 10^3/uL (1.5-8.5); NEUTROPHILS % 44.3 % (36.0-66.0); PLATELET COUNT, AUTOMATED 249 10^3/uL (150-450); RED BLOOD COUNT 4.73 10^6/uL (4.30-6.10); WHITE BLOOD COUNT 8.4 10^3/uL (4.0-10.0)
[2019-11-22 13:05] LABS: ALBUMIN 3.8 GM/DL (3.2-5.2); ALT/SGPT 47 U/L (12-78); BILIRUBIN,DIRECT 0.1 MG/DL (0.0-0.2); BILIRUBIN,TOTAL 0.2 MG/DL (0.2-1.0); BLOOD UREA NITROGEN 14 MG/DL (7-18); CREATININE FOR GFR 1.15 MG/DL (0.70-1.30); GLOMERULAR FILTRATION RATE > 60.0 (>56); TOTAL PROTEIN 7.3 GM/DL (6.4-8.2)
== END ==
LOC: M LABDRWAD 11:50
PROVIDERS: ATTEND Orthopaedic Surgery
DX: Z51.81 Encounter for therapeutic drug level monitoring (principal); M25.569 Pain in unspecified knee

== ENCOUNTER 2020-04-12 12:25 | Emergency (ER) | payer MEDICARE, OTHER, MEDICAID ==
[2020-04-12] MEDS ORDERED: NORCO, ANEXSIA 5/325MG TABLET (HYDROcodone/ACETAMINOPHEN) As Ordered ONE (14:45)
[2020-05-09 14:33] LABS: HEMATOCRIT 40.2 % (42.0-52.0); HEMOGLOBIN 13.7 g/dl (13.5-17.5); MEAN CORPUSCULAR HEMOGLOBIN 32.7 pg (27.0-33.0); MEAN CORPUSCULAR HGB CONC 34.1 g/dl (32.0-36.5); MEAN CORPUSCULAR VOLUME 95.9 fl (80.0-96.0); PLATELET COUNT, AUTOMATED 188 10^3/uL (150-450); RED BLOOD COUNT 4.19 10^6/uL (4.30-6.10); WHITE BLOOD COUNT 10.7 10^3/uL (4.0-10.0)
[2020-05-20 08:23] LABS: BLOOD UREA NITROGEN 14 MG/DL (7-18); CREATININE FOR GFR 1.04 MG/DL (0.70-1.30); GLOMERULAR FILTRATION RATE > 60.0 (>56); GLUCOSE, FASTING 114 MG/DL (70-100); POTASSIUM SERUM 3.8 MEQ/L (3.5-5.1); SODIUM LEVEL 141 MEQ/L (136-145)
[2020-05-20 08:24] LABS: CALCIUM LEVEL 8.4 MG/DL (8.5-10.1); CARBON DIOXIDE LEVEL 22 mmol/L (20-29); CHLORIDE LEVEL 112 MEQ/L (98-107); CK-MB VALUE MASS 7.7 NG/ML (<3.6); CPK CREATINE PHOSPHOKINASE 1314 U/L (39-308); MB/CK RELATIVE INDEX 0.58 (< OR =4); TROPONIN I < 0.02 NG/ML (< 0.10)
--- NOTE | 2020-06-06 07:32 | ECGEPIP ---
SINUS RHYTHM MOD. IVCD SEE SCANNED DOWNTIME REPORT MTDD
== END 2020-04-12 16:30 | disposition home or self-care (01) ==
LOC: M ED 12:25
DX: R55 Syncope and collapse (principal); S82.891A Other fracture of right lower leg, initial encounter for closed fracture; S30.0XXA Contusion of lower back and pelvis, initial encounter; W18.39XA Other fall on same level, initial encounter; Y92.018 Other place in single-family (private) house as the place of occurrence of the external cause; I10 Essential (primary) hypertension; E78.5 Hyperlipidemia, unspecified; G43.909 Migraine, unspecified, not intractable, without status migrainosus; Z88.0 Allergy status to penicillin; Z88.2 Allergy status to sulfonamides; Z79.899 Other long term (current) drug therapy; Z79.82 Long term (current) use of aspirin; F17.210 Nicotine dependence, cigarettes, uncomplicated

== ENCOUNTER → 2020-04-22 | Outpatient (REF) | payer MEDICARE, OTHER, MEDICAID ==
[2020-06-04 13:13] LABS: ALBUMIN 3.6 GM/DL (3.2-5.2); ALT/SGPT 33 U/L (12-78); BILIRUBIN,TOTAL 0.3 MG/DL (0.2-1.0); BLOOD UREA NITROGEN 13 MG/DL (7-18); CALCIUM LEVEL 8.6 MG/DL (8.5-10.1); CARBON DIOXIDE LEVEL 28 MEQ/L (21-32); CHLORIDE LEVEL 109 MEQ/L (98-107); CREATININE FOR GFR 1.09 MG/DL (0.70-1.30); FREE T4 0.94 NG/DL (0.76-1.46); GLOMERULAR FILTRATION RATE > 60.0 (>56); GLUCOSE, FASTING 82 MG/DL (70-100); MAGNESIUM LEVEL 2.1 MG/DL (1.8-2.4); POTASSIUM SERUM 3.8 MEQ/L (3.5-5.1); SODIUM LEVEL 139 MEQ/L (136-145); TOTAL PROTEIN 7.1 GM/DL (6.4-8.2); VITAMIN B12 LEVEL 395 PG/ML (247-911)
== END ==
LOC: M SFHCADAM 08:34
PROVIDERS: ATTEND Physician Assistant
DX: T67.1XXA Heat syncope, initial encounter (principal); Z79.899 Other long term (current) drug therapy
CPT/HCPCS: 36415; 80053; 82607; 83735; 84439; 84443; G0463

== ENCOUNTER → 2020-08-08 | Outpatient (CLI) | payer MEDICARE, OTHER | LOC: M LABSMTC 13:13 | PROVIDERS: ATTEND Orthopaedic Surgery | DX: Z01.812 Encounter for preprocedural laboratory examination (principal); Z20.828 Contact with and (suspected) exposure to other viral communicable diseases ==

== ENCOUNTER → 2020-10-23 | Outpatient (REF) | payer MEDICARE, OTHER | LOC: M SFHCADAM 10:13 | PROVIDERS: ATTEND Physician Assistant | DX: F11.20 Opioid dependence, uncomplicated (principal) ==

== ENCOUNTER → 2021-02-18 | Outpatient (CLI) | payer MEDICARE, OTHER ==
[~2021-02-18] MED LIST changes: +ASPI-569 PO; -ASPI81TAEC PO
[2021-02-18 17:08] LABS: BASO # 0.1 10^3/uL (0.0-0.2); BASO % 0.7 % (0.0-1.0); EOS # 0.2 10^3/uL (0.0-0.5); EOS % 3.1 % (0.0-3.0); HEMOGLOBIN 14.8 g/dl (13.5-17.5); LYMPH # 2.8 10^3/uL (1.5-5.0); LYMPH % 41.3 % (24.0-44.0); MEAN CORPUSCULAR HGB CONC 32.9 g/dl (32.0-36.5); MEAN CORPUSCULAR VOLUME 97.4 fl (80.0-96.0); MONO # 0.5 10^3/uL (0.0-0.8); MONO % 7.8 % (2.0-8.0); NEUTROPHILS # 3.2 10^3/uL (1.5-8.5); NEUTROPHILS % 46.8 % (36.0-66.0); PLATELET COUNT, AUTOMATED 224 10^3/uL (150-450); RED BLOOD COUNT 4.62 10^6/uL (4.30-6.10); WHITE BLOOD COUNT 6.8 10^3/uL (4.0-10.0)
[2021-02-18 17:25] LABS: ALBUMIN 3.7 GM/DL (3.2-5.2); ALT/SGPT 41 U/L (12-78); BILIRUBIN,DIRECT 0.2 MG/DL (0.0-0.2); BILIRUBIN,TOTAL 0.4 MG/DL (0.2-1.0); BLOOD UREA NITROGEN 20 MG/DL (7-18); CREATININE FOR GFR 1.07 MG/DL (0.70-1.30); GLOMERULAR FILTRATION RATE > 60.0 (>56); TOTAL PROTEIN 6.9 GM/DL (6.4-8.2)
== END ==
LOC: M WUC 12:58
PROVIDERS: ATTEND Orthopaedic Surgery
DX: M17.0 Bilateral primary osteoarthritis of knee (principal); Z79.899 Other long term (current) drug therapy; M25.569 Pain in unspecified knee

== ENCOUNTER → 2021-04-06 | Outpatient (REF) | payer MEDICARE, OTHER ==
[2021-04-06 13:12] LABS: BASO # 0.1 10^3/uL (0.0-0.2); EOS # 0.3 10^3/uL (0.0-0.5); EOS % 3.5 % (0.0-3.0); HEMOGLOBIN 14.7 g/dl (13.5-17.5); LYMPH # 2.9 10^3/uL (1.5-5.0); LYMPH % 37.4 % (24.0-44.0); MEAN CORPUSCULAR HEMOGLOBIN 32.1 pg (27.0-33.0); MEAN CORPUSCULAR HGB CONC 32.7 g/dl (32.0-36.5); MEAN CORPUSCULAR VOLUME 98.3 fl (80.0-96.0); MONO # 0.7 10^3/uL (0.0-0.8); MONO % 9.3 % (2.0-8.0); NEUTROPHILS # 3.8 10^3/uL (1.5-8.5); NEUTROPHILS % 48.5 % (36.0-66.0); PLATELET COUNT, AUTOMATED 243 10^3/uL (150-450); RED BLOOD COUNT 4.58 10^6/uL (4.30-6.10); WHITE BLOOD COUNT 7.8 10^3/uL (4.0-10.0)
[2021-04-06 14:00] LABS: ALBUMIN 3.6 GM/DL (3.2-5.2); ALT/SGPT 38 U/L (12-78); BILIRUBIN,TOTAL 0.3 MG/DL (0.2-1.0); BLOOD UREA NITROGEN 20 MG/DL (7-18); CALCIUM LEVEL 8.6 MG/DL (8.5-10.1); CARBON DIOXIDE LEVEL 25 MEQ/L (21-32); CHLORIDE LEVEL 113 MEQ/L (98-107); CHOLESTEROL LEVEL 154 MG/DL (<200); CREATININE FOR GFR 1.05 MG/DL (0.70-1.30); FREE T4 0.75 NG/DL (0.76-1.46); GLOMERULAR FILTRATION RATE > 60.0 (>56); GLUCOSE, FASTING 83 MG/DL (70-100); HDL CHOLESTEROL 50 MG/DL (>40); LDL CHOLESTEROL 55 MG/DL (<100); NON-HDL-C 104 MG/DL; POTASSIUM SERUM 4.3 MEQ/L (3.5-5.1); SODIUM LEVEL 142 MEQ/L (136-145); TOTAL PROTEIN 6.8 GM/DL (6.4-8.2); TRIGLYCERIDES LEVEL 243 MG/DL (<150)
== END ==
LOC: M SFHCADAM 11:19
PROVIDERS: ATTEND Physician Assistant
DX: F11.20 Opioid dependence, uncomplicated (principal); F17.210 Nicotine dependence, cigarettes, uncomplicated; E55.9 Vitamin D deficiency, unspecified; E78.00 Pure hypercholesterolemia, unspecified

== ENCOUNTER → 2021-08-28 | Outpatient (REF) | LOC: M LABSMTC 09:58 | PROVIDERS: ATTEND Pediatrics | DX: Z11.52 Encounter for screening for COVID-19 (principal) ==

== ENCOUNTER → 2021-09-17 | Outpatient (CLI) | payer MEDICARE, OTHER ==
[2021-09-17 16:02] LABS: BASO # 0.1 10^3/uL (0.0-0.2); BASO % 0.8 % (0.0-1.0); EOS # 0.3 10^3/uL (0.0-0.5); EOS % 3.4 % (0.0-3.0); HEMATOCRIT 46.6 % (42.0-52.0); HEMOGLOBIN 15.3 g/dl (13.5-17.5); LYMPH # 2.4 10^3/uL (1.5-5.0); LYMPH % 30.8 % (24.0-44.0); MEAN CORPUSCULAR HEMOGLOBIN 32.2 pg (27.0-33.0); MEAN CORPUSCULAR HGB CONC 32.8 g/dl (32.0-36.5); MEAN CORPUSCULAR VOLUME 98.1 fl (80.0-96.0); MONO # 0.6 10^3/uL (0.0-0.8); MONO % 8.4 % (2.0-8.0); NEUTROPHILS # 4.3 10^3/uL (1.5-8.5); NEUTROPHILS % 56.2 % (36.0-66.0); PLATELET COUNT, AUTOMATED 251 10^3/uL (150-450); RED BLOOD COUNT 4.75 10^6/uL (4.30-6.10); WHITE BLOOD COUNT 7.7 10^3/uL (4.0-10.0)
[2021-09-17 16:35] LABS: ALBUMIN 3.7 GM/DL (3.2-5.2); ALT/SGPT 57 U/L (12-78); BILIRUBIN,DIRECT 0.2 MG/DL (0.0-0.2); BILIRUBIN,TOTAL 0.3 MG/DL (0.2-1.0); BLOOD UREA NITROGEN 22 MG/DL (7-18); CREATININE FOR GFR 1.12 MG/DL (0.70-1.30); GLOMERULAR FILTRATION RATE > 60.0 (>56)
== END ==
LOC: M WUC 10:09
PROVIDERS: ATTEND Orthopaedic Surgery
DX: Z51.81 Encounter for therapeutic drug level monitoring (principal); M25.569 Pain in unspecified knee; M17.0 Bilateral primary osteoarthritis of knee

== ENCOUNTER → 2021-10-07 | Outpatient (REF) | payer MEDICARE, OTHER | LOC: M SFHCADAM 15:51 | PROVIDERS: ATTEND Physician Assistant | DX: E78.00 Pure hypercholesterolemia, unspecified (principal); R53.82 Chronic fatigue, unspecified; D64.9 Anemia, unspecified; Z12.5 Encounter for screening for malignant neoplasm of prostate | CPT/HCPCS: 82607; 82728; 82746; 83550; 84439; 84443; G0103; G0463 ==

== ENCOUNTER → 2021-10-26 | Outpatient (CLI) | payer MEDICARE, OTHER | LOC: M RAD 09:27 | PROVIDERS: ATTEND Physician Assistant | DX: F17.210 Nicotine dependence, cigarettes, uncomplicated (principal) ==

== ENCOUNTER → 2022-03-02 | Outpatient (CLI) | payer MEDICARE, OTHER ==
[2022-03-02 13:05] LABS: BASO # 0.1 10^3/uL (0.0-0.2); BASO % 0.9 % (0.0-1.0); EOS # 0.2 10^3/uL (0.0-0.5); HEMATOCRIT 43.2 % (42.0-52.0); HEMOGLOBIN 14.4 g/dl (13.5-17.5); LYMPH # 2.6 10^3/uL (1.5-5.0); LYMPH % 34.4 % (24.0-44.0); MEAN CORPUSCULAR HEMOGLOBIN 33.1 pg (27.0-33.0); MEAN CORPUSCULAR HGB CONC 33.3 g/dl (32.0-36.5); MEAN CORPUSCULAR VOLUME 99.3 fl (80.0-96.0); MONO # 0.8 10^3/uL (0.0-0.8); NEUTROPHILS # 3.9 10^3/uL (1.5-8.5); NEUTROPHILS % 51.4 % (36.0-66.0); PLATELET COUNT, AUTOMATED 212 10^3/uL (150-450); RED BLOOD COUNT 4.35 10^6/uL (4.30-6.10); WHITE BLOOD COUNT 7.6 10^3/uL (4.0-10.0)
[2022-03-02 13:57] LABS: ALBUMIN 3.4 GM/DL (3.2-5.2); ALT/SGPT 55 U/L (12-78); BILIRUBIN,DIRECT 0.2 MG/DL (0.0-0.2); BILIRUBIN,TOTAL 0.3 MG/DL (0.2-1.0); BLOOD UREA NITROGEN 24 MG/DL (7-18); CREATININE FOR GFR 1.13 MG/DL (0.70-1.30); GLOMERULAR FILTRATION RATE > 60.0 (>56); TOTAL PROTEIN 6.8 GM/DL (6.4-8.2)
== END ==
LOC: M ADAMS 10:45
PROVIDERS: ATTEND Orthopaedic Surgery
DX: M25.569 Pain in unspecified knee (principal); Z79.899 Other long term (current) drug therapy; M17.0 Bilateral primary osteoarthritis of knee

== ENCOUNTER → 2022-10-15 | Outpatient (CLI) | payer MEDICARE, OTHER ==
[2022-10-15 16:59] LABS: BASO # 0.1 10^3/uL (0.0-0.2); BASO % 0.8 % (0.0-1.0); EOS # 0.3 10^3/uL (0.0-0.5); EOS % 3.4 % (0.0-3.0); HEMATOCRIT 43.4 % (42.0-52.0); HEMOGLOBIN 14.2 g/dl (13.5-17.5); LYMPH % 38.4 % (24.0-44.0); MEAN CORPUSCULAR HEMOGLOBIN 32.8 pg (27.0-33.0); MEAN CORPUSCULAR HGB CONC 32.7 g/dl (32.0-36.5); MEAN CORPUSCULAR VOLUME 100.2 fl (80.0-96.0); MONO # 0.7 10^3/uL (0.0-0.8); MONO % 8.4 % (2.0-8.0); NEUTROPHILS # 3.8 10^3/uL (1.5-8.5); NEUTROPHILS % 48.5 % (36.0-66.0); PLATELET COUNT, AUTOMATED 241 10^3/uL (150-450); RED BLOOD COUNT 4.33 10^6/uL (4.30-6.10); WHITE BLOOD COUNT 7.9 10^3/uL (4.0-10.0)
[2022-10-15 17:06] LABS: ALBUMIN 3.5 G/DL (3.2-5.2); ALKALINE PHOSPHATASE 80 U/L (46-116); ALT/SGPT 47 U/L (7.0-40); AST/SGOT 44 U/L (<34); BILIRUBIN,DIRECT 0.1 MG/DL (<0.4); BILIRUBIN,TOTAL 0.3 MG/DL (0.3-1.2); BLOOD UREA NITROGEN 21 MG/DL (9-23); GLOMERULAR FILTRATION RATE > 60.0 (>56); TOTAL PROTEIN 6.7 G/DL (5.7-8.2)
== END ==
LOC: M LABDRWAD 13:47
PROVIDERS: ATTEND Physician Assistant Surgical
DX: Z51.81 Encounter for therapeutic drug level monitoring (principal)

== ENCOUNTER → 2022-11-19 | Outpatient (REF) | payer MEDICARE, OTHER ==
[~2022-11-19] MED LIST changes: +TOPI-254 PO; -TOPI50TA9 PO
[2022-11-19 19:57] LABS: ALBUMIN 3.5 G/DL (3.2-5.2); ALKALINE PHOSPHATASE 95 U/L (46-116); ALT/SGPT 46 U/L (7.0-40); AST/SGOT 43 U/L (<34); BILIRUBIN,TOTAL 0.3 MG/DL (0.3-1.2); BLOOD UREA NITROGEN 12 MG/DL (9-23); CALCIUM LEVEL 8.7 MG/DL (8.5-10.1); CARBON DIOXIDE LEVEL 27 MMOL/L (20-31); CHLORIDE LEVEL 109 MMOL/L (98-107); CREATININE FOR GFR 1.03 MG/DL (0.70-1.30); GLOMERULAR FILTRATION RATE > 60.0 (>56); GLUCOSE, FASTING 89 MG/DL (60-100); POTASSIUM SERUM 3.7 MMOL/L (3.5-5.1); SODIUM LEVEL 143 MMOL/L (136-145); TOTAL PROTEIN 6.9 G/DL (5.7-8.2)
== END ==
LOC: M SFHCADAM 14:03
PROVIDERS: ATTEND Physician Assistant
DX: R74.8 Abnormal levels of other serum enzymes (principal)

== ENCOUNTER → 2022-12-15 | Outpatient (REF) | payer MEDICARE, OTHER ==
[2022-12-15 16:42] LABS: FERRITIN 126.2 NG/ML (10.5-307.3)
[2022-12-15 17:00] LABS: HEPATITIS B SURFACE ANTIGEN NEGATIVE (NEGATIVE)
[2022-12-15 17:20] LABS: HEPATITIS B CORE ANTIBODY IGM NEGATIVE (NEGATIVE); HEPATITIS C VIRUS ABY INDEX 0.1 INDEX (<0.8)
[2022-12-17 23:08] LABS: ANA (HEP2) Negative (.); ANTI-MITOCHONDRIAL ANTIBODY <20.0 Units (0.0-20.0)
== END ==
LOC: M SFHCADAM 11:37
PROVIDERS: ATTEND Physician Assistant
DX: R74.8 Abnormal levels of other serum enzymes (principal)

== ENCOUNTER → 2022-12-29 | Outpatient (CLI) | payer MEDICARE, OTHER | LOC: M RAD 08:14 | PROVIDERS: ATTEND Physician Assistant | DX: R74.8 Abnormal levels of other serum enzymes (principal); Z90.49 Acquired absence of other specified parts of digestive tract ==

== ENCOUNTER → 2023-02-18 | Outpatient (CLI) | payer MEDICARE, OTHER | LOC: M RAD 10:53 | PROVIDERS: ATTEND Physician Assistant | DX: F17.210 Nicotine dependence, cigarettes, uncomplicated (principal) ==

== ENCOUNTER → 2023-04-01 | Outpatient (REF) | payer MEDICARE, OTHER ==
[2023-04-01 17:03] LABS: BASO # 0.1 10^3/uL (0.0-0.2); EOS # 0.2 10^3/uL (0.0-0.5); EOS % 2.6 % (0.0-3.0); HEMATOCRIT 43.6 % (42.0-52.0); HEMOGLOBIN 14.4 g/dl (13.5-17.5); LYMPH # 2.8 10^3/uL (1.5-5.0); LYMPH % 34.4 % (24.0-44.0); MEAN CORPUSCULAR HEMOGLOBIN 32.8 pg (27.0-33.0); MEAN CORPUSCULAR VOLUME 99.3 fl (80.0-96.0); MONO # 0.6 10^3/uL (0.0-0.8); MONO % 7.8 % (2.0-8.0); NEUTROPHILS # 4.4 10^3/uL (1.5-8.5); NEUTROPHILS % 53.8 % (36.0-66.0); PLATELET COUNT, AUTOMATED 203 10^3/uL (150-450); RED BLOOD COUNT 4.39 10^6/uL (4.30-6.10); WHITE BLOOD COUNT 8.1 10^3/uL (4.0-10.0)
[2023-04-01 17:29] LABS: ALBUMIN 3.6 G/DL (3.2-5.2); ALKALINE PHOSPHATASE 104 U/L (46-116); ALT/SGPT 50 U/L (7.0-40); AST/SGOT 48 U/L (<34); BILIRUBIN,TOTAL 0.6 MG/DL (0.3-1.2); BLOOD UREA NITROGEN 18 MG/DL (9-23); CALCIUM LEVEL 9.2 MG/DL (8.5-10.1); CARBON DIOXIDE LEVEL 25 MMOL/L (20-31); CHLORIDE LEVEL 110 MMOL/L (98-107); CHOLESTEROL LEVEL 128 MG/DL (<200); CHOLESTEROL RISK RATIO 1.98 (<5); CREATININE FOR GFR 1.04 MG/DL (0.70-1.30); GLOMERULAR FILTRATION RATE > 60.0 (>56); GLUCOSE, FASTING 89 MG/DL (60-100); HDL CHOLESTEROL 64.5 MG/DL (>40); LDL CHOLESTEROL 37.7 MG/DL (<100); NON-HDL-C 63.5 MG/DL; SODIUM LEVEL 140 MMOL/L (136-145); TOTAL PROTEIN 6.7 G/DL (5.7-8.2); TRIGLYCERIDES LEVEL 129 MG/DL (<150)
[2023-04-01 17:30] LABS: FREE T4 0.98 NG/DL (0.89-1.76)
[2023-04-01 17:57] LABS: THYROID STIMULATING HORMONE 1.238 uIU/ML (0.55-4.78)
== END ==
LOC: M SFHCADAM 13:07
PROVIDERS: ATTEND Physician Assistant
DX: M17.10 Unilateral primary osteoarthritis, unspecified knee (principal); Z12.5 Encounter for screening for malignant neoplasm of prostate; E78.00 Pure hypercholesterolemia, unspecified; E55.9 Vitamin D deficiency, unspecified; F11.20 Opioid dependence, uncomplicated; D64.9 Anemia, unspecified
CPT/HCPCS: 80053; 80061; 82306; 84439; 84443; 85025; G0103

== ENCOUNTER → 2023-04-12 | Outpatient (REF) | payer MEDICARE, OTHER | LOC: M SFHCADAM 18:16 | PROVIDERS: ATTEND Physician Assistant | DX: R19.7 Diarrhea, unspecified (principal) ==

== ENCOUNTER 2023-09-05 09:57 | Inpatient (IN) | payer MEDICARE, OTHER ==
[~2023-09-05] VITALS: Ht 165.1 cm; Wt 59.5 kg
[~2023-09-05 09:57] MED LIST changes: -MELO15TA28; -ONDA4TAB6; +ONDA4TAB6 SL; +TOPI-21 PO; -TOPI-254 PO
[2023-09-05] MEDS ORDERED: AMIT75TA PO (11:59)
[2023-09-05] MEDS ORDERED: PROP20TA PO (11:59)
[2023-09-05] MEDS ORDERED: RIME75TA PO (11:59)
[2023-09-05] MEDS ORDERED: TRAZ-257 PO (11:59)
[2023-09-05] MEDS ORDERED: AMIT100TA PO (11:59)
[2023-09-05 12:03] LABS: BASO # 0.1 10^3/uL (0.0-0.2); BASO % 0.2 % (0.0-1.0); HEMATOCRIT 39.7 % (42.0-52.0); HEMOGLOBIN 13.5 g/dl (13.5-17.5); LYMPH # 2.1 10^3/uL (1.5-5.0); LYMPH % 8.4 % (24.0-44.0); MEAN CORPUSCULAR HEMOGLOBIN 33.6 pg (27.0-33.0); MEAN CORPUSCULAR VOLUME 98.8 fl (80.0-96.0); MONO # 1.5 10^3/uL (0.0-0.8); MONO % 6.2 % (2.0-8.0); NEUTROPHILS # 20.4 10^3/uL (1.5-8.5); NEUTROPHILS % 82.6 % (36.0-66.0); PLATELET COUNT, AUTOMATED 178 10^3/uL (150-450); RED BLOOD COUNT 4.02 10^6/uL (4.30-6.10); WHITE BLOOD COUNT 24.6 10^3/uL (4.0-10.0)
[2023-09-05 12:11] LABS: ERYTHROCYTE SEDIMENTATION RATE 11 mm/hr (0-20)
[2023-09-05 12:31] LABS: C REACTIVE PROTEIN QUANTITATIV 7.9 MG/DL (<1.0)
[2023-09-05] MEDS ORDERED: BOOSTRIX VACCINE (TETANUS/DIPHTH/ACEL. PERTUSSIS) 0.5ML SYR IM.IMMUN ONE (13:15)
[2023-09-05] MEDS ORDERED: IBUPROFEN 600MG TAB PO ONE (13:15)
[2023-09-05] MEDS ORDERED: NS 1,000 ML IV SCH (13:15)
[2023-09-05] MEDS ORDERED: POTASSIUM CHLORIDE 10MEQ SR TABLET PO ONE (13:15)
[2023-09-05] MEDS ORDERED: CLINDAMYCIN 600 MG in IV 1 EA IV ONE (13:20)
[2023-09-05] MEDS ORDERED: VANCOMYCIN HCL 1,000 MG, VIAL MATE ADAPTER 1 EACH in D5W 250 ML IV ONE (13:20)
[2023-09-05] MEDS ORDERED: HYDROcodone/APAP LIQUID 7.5-325MG 15ML UDC (LORTAB ELIXIR) PO ONE ×2 (13:45)
[2023-09-05] MEDS ORDERED: MED REC IN PROGRESS XX SCH (14:25)
[2023-09-05] MEDS ORDERED: ASPI81TA26 PO (14:45)
[2023-09-05] MEDS ORDERED: CHOL125C6 PO (14:46)
[2023-09-05] MEDS ORDERED: ATOR1TAB21 PO (14:49)
[2023-09-05] MEDS ORDERED: CVS1CAP5 PO (14:50)
[2023-09-05] MEDS ORDERED: TRAZ-252 PO (14:52)
[2023-09-05] MEDS ORDERED: LYRI150C PO (14:57)
[2023-09-05] MEDS ORDERED: HOME MED LIST COMPLETE! XX SCH (15:05)
[2023-09-05 15:20] LABS: RSV AMPLIFICATION NEGATIVE (NEGATIVE)
[2023-09-05] MEDS: KETOROLAC 30 MG/ML 1ML VIAL IV SCH ×2 (15:23→19:53)
[2023-09-05 15:37] LABS: PROCALCITONIN 1.33 ng/ml
[2023-09-05 16:05] VITALS: BP 139/90; TEMP 97.6; O2SAT 98
[2023-09-05] MEDS ORDERED: ACETAMINOPHEN 500 MG TAB PO PRN (16:35)
[2023-09-05] MEDS: NS 1,000 ML IV SCH (16:47)
[2023-09-05] MEDS: oxyCODONE 5MG TAB PO PRN (16:47)
[2023-09-05] MEDS: PROPRANOLOL 20 MG TAB PO SCH (19:51)
[2023-09-05] MEDS: TOPIRAMATE (TopAMAX) 100 MG TAB PO SCH (19:52)
[2023-09-05] MEDS: PREGABALIN 75 MG CAP(LYRICA) PO SCH (19:52)
[2023-09-05] MEDS: AMITRIPTYLINE 50 MG TAB PO SCH (19:52)
[2023-09-05 20:00] VITALS: BP 130/67; TEMP 97.8; O2SAT 97
[2023-09-05] MEDS: CEFTAROLINE FOSAMIL 600 MG in D5W MINI-BAG PLUS 50 ML IV SCH (20:23)
[2023-09-05 21:00] VITALS: BP 143/80; TEMP 97.8; O2SAT 98
[2023-09-05] MEDS: traZODone 50 MG TAB PO SCH (21:57)
[2023-09-05] MEDS: ATORVASTATIN 20 MG TAB PO SCH (21:57)
[2023-09-05] MEDS: LACTOBACILLUS ACIDOPHILUS CAP (BACID) PO SCH (21:57)
[2023-09-06] MEDS: KETOROLAC 30 MG/ML 1ML VIAL IV SCH ×4 (02:47→21:12)
[2023-09-06] MEDS: NS 1,000 ML IV SCH ×2 (02:47→13:24)
[2023-09-06 06:00] VITALS: BP 109/71; TEMP 97.1; O2SAT 98
[2023-09-06 06:16] LABS: BASO % 0.2 % (0.0-1.0); EOS # 0.1 10^3/uL (0.0-0.5); EOS % 0.7 % (0.0-3.0); HEMATOCRIT 35.6 % (42.0-52.0); HEMOGLOBIN 12.1 g/dl (13.5-17.5); LYMPH # 1.8 10^3/uL (1.5-5.0); LYMPH % 9.7 % (24.0-44.0); MONO # 1.1 10^3/uL (0.0-0.8); NEUTROPHILS % 82.3 % (36.0-66.0); PLATELET COUNT, AUTOMATED 132 10^3/uL (150-450); RED BLOOD COUNT 3.56 10^6/uL (4.30-6.10); WHITE BLOOD COUNT 18.3 10^3/uL (4.0-10.0)
[2023-09-06] MEDS: oxyCODONE 5MG TAB PO PRN ×2 (06:19→15:21)
[2023-09-06 06:25] VITALS: BP 118/84; TEMP 97.1
[2023-09-06 06:38] LABS: BLOOD UREA NITROGEN 22 MG/DL (9-23); CALCIUM LEVEL 8.1 MG/DL (8.5-10.1); CARBON DIOXIDE LEVEL 19 MMOL/L (20-31); CHLORIDE LEVEL 115 MMOL/L (98-107); CREATININE FOR GFR 0.79 MG/DL (0.70-1.30); GLOMERULAR FILTRATION RATE > 60.0 (>56); GLUCOSE, FASTING 128 MG/DL (60-100); POTASSIUM SERUM 3.5 MMOL/L (3.5-5.1); SODIUM LEVEL 140 MMOL/L (136-145)
[2023-09-06] MEDS: PREGABALIN 75 MG CAP(LYRICA) PO SCH ×2 (10:04→21:11)
[2023-09-06] MEDS: TOPIRAMATE (TopAMAX) 100 MG TAB PO SCH ×2 (10:04→21:11)
[2023-09-06] MEDS: ASPIRIN 81MG ENTERIC TABLET PO SCH (10:04)
[2023-09-06] MEDS: CEFTAROLINE FOSAMIL 600 MG in D5W MINI-BAG PLUS 50 ML IV SCH ×2 (10:06→21:12)
[2023-09-06] MEDS: ENOXAPARIN 40MG/0.4ML SYRINGE (J1650 PER 10MG) SC SCH (10:06)
[2023-09-06 14:13] VITALS: BP 133/77; TEMP 98.4; O2SAT 97
[2023-09-06 15:37] LABS: ANTI-STREPTOLYSIN O QUANT 29.4 IU/ML (<195)
[2023-09-06] MEDS ORDERED: ONDANSETRON 4MG ORAL DISINTEGRATING TAB SL PRN (17:15)
[2023-09-06] MEDS ORDERED: [UNRECOGNIZED DRUG - OTHER] PO PRN ×2 (17:20→17:25)
[2023-09-06 20:19] VITALS: BP 148/84; TEMP 97.7; O2SAT 96
[2023-09-06] MEDS: traZODone 50 MG TAB PO SCH (21:11)
[2023-09-06] MEDS: AMITRIPTYLINE 50 MG TAB PO SCH (21:11)
[2023-09-06] MEDS: PROPRANOLOL 20 MG TAB PO SCH (21:12)
[2023-09-06] MEDS: ATORVASTATIN 20 MG TAB PO SCH (21:12)
[2023-09-06] MEDS: LACTOBACILLUS ACIDOPHILUS CAP (BACID) PO SCH (21:12)
[2023-09-06] MEDS ORDERED: ENTER DRUG NAME HERE (PATIENT'S OWN MED) PO PRN (22:55)
[2023-09-07] MEDS: NS 1,000 ML IV SCH ×3 (01:23→17:16)
[2023-09-07] MEDS: KETOROLAC 30 MG/ML 1ML VIAL IV SCH ×4 (03:56→21:34)
[2023-09-07 06:02] VITALS: BP 123/74; TEMP 98.2; O2SAT 93
[2023-09-07 06:09] LABS: BASO # 0.1 10^3/uL (0.0-0.2); BASO % 0.4 % (0.0-1.0); EOS # 0.2 10^3/uL (0.0-0.5); EOS % 1.6 % (0.0-3.0); HEMATOCRIT 32.6 % (42.0-52.0); HEMOGLOBIN 10.8 g/dl (13.5-17.5); LYMPH # 1.7 10^3/uL (1.5-5.0); LYMPH % 13.1 % (24.0-44.0); MEAN CORPUSCULAR HEMOGLOBIN 34.1 pg (27.0-33.0); MEAN CORPUSCULAR HGB CONC 33.1 g/dl (32.0-36.5); MEAN CORPUSCULAR VOLUME 102.8 fl (80.0-96.0); MONO # 0.9 10^3/uL (0.0-0.8); MONO % 6.8 % (2.0-8.0); NEUTROPHILS # 9.8 10^3/uL (1.5-8.5); NEUTROPHILS % 77.4 % (36.0-66.0); PLATELET COUNT, AUTOMATED 133 10^3/uL (150-450); RED BLOOD COUNT 3.17 10^6/uL (4.30-6.10); WHITE BLOOD COUNT 12.7 10^3/uL (4.0-10.0)
[2023-09-07 06:38] LABS: BLOOD UREA NITROGEN 18 MG/DL (9-23); CALCIUM LEVEL 7.9 MG/DL (8.5-10.1); CARBON DIOXIDE LEVEL 16 MMOL/L (20-31); CHLORIDE LEVEL 118 MMOL/L (98-107); CREATININE FOR GFR 0.83 MG/DL (0.70-1.30); GLOMERULAR FILTRATION RATE > 60.0 (>56); GLUCOSE, FASTING 102 MG/DL (60-100); POTASSIUM SERUM 3.6 MMOL/L (3.5-5.1); SODIUM LEVEL 141 MMOL/L (136-145)
[2023-09-07] MEDS: CEFTAROLINE FOSAMIL 600 MG in D5W MINI-BAG PLUS 50 ML IV SCH ×2 (08:19→20:18)
[2023-09-07] MEDS: ENOXAPARIN 40MG/0.4ML SYRINGE (J1650 PER 10MG) SC SCH ×2 (08:20→08:25)
[2023-09-07] MEDS: ASPIRIN 81MG ENTERIC TABLET PO SCH (08:20)
[2023-09-07] MEDS: VITAMIN D 1,000 INTERNATIONAL UNITS TABLET PO SCH (08:20)
[2023-09-07] MEDS: PREGABALIN 75 MG CAP(LYRICA) PO SCH ×2 (08:20→20:19)
[2023-09-07] MEDS: NICOTINE 21MG/24HR 1 EA TRANSDERMAL TD SCH (08:20)
[2023-09-07] MEDS: TOPIRAMATE (TopAMAX) 100 MG TAB PO SCH ×2 (08:21→20:18)
[2023-09-07] MEDS: MULTIVITAMINS/MINERALS THERAP 1 TAB PO SCH (08:21)
[2023-09-07] MEDS: oxyCODONE 5MG TAB PO PRN (13:17)
[2023-09-07 14:00] VITALS: BP 130/78; TEMP 98.4; O2SAT 99
[2023-09-07] MEDS: AMITRIPTYLINE 50 MG TAB PO SCH (20:18)
[2023-09-07] MEDS: traZODone 50 MG TAB PO SCH (20:19)
[2023-09-07] MEDS: LACTOBACILLUS ACIDOPHILUS CAP (BACID) PO SCH (20:19)
[2023-09-07] MEDS: ATORVASTATIN 20 MG TAB PO SCH (20:19)
[2023-09-07 20:21] VITALS: BP 128/79
[2023-09-07] MEDS: PROPRANOLOL 20 MG TAB PO SCH (20:21)
[2023-09-07 21:04] VITALS: BP 140/81; TEMP 99; O2SAT 99
[2023-09-08] MEDS: NS 1,000 ML IV SCH ×2 (00:04→14:23)
[2023-09-08] MEDS: KETOROLAC 30 MG/ML 1ML VIAL IV SCH ×3 (02:09→14:23)
[2023-09-08 05:16] VITALS: BP 154/81; TEMP 98.6; O2SAT 98
[2023-09-08] MEDS: oxyCODONE 5MG TAB PO PRN (05:48)
[2023-09-08 06:23] LABS: BASO % 0.4 % (0.0-1.0); EOS # 0.2 10^3/uL (0.0-0.5); EOS % 2.7 % (0.0-3.0); HEMATOCRIT 30.9 % (42.0-52.0); HEMOGLOBIN 10.5 g/dl (13.5-17.5); LYMPH # 1.9 10^3/uL (1.5-5.0); LYMPH % 21.1 % (24.0-44.0); MEAN CORPUSCULAR HEMOGLOBIN 33.9 pg (27.0-33.0); MEAN CORPUSCULAR VOLUME 99.7 fl (80.0-96.0); MONO # 0.7 10^3/uL (0.0-0.8); MONO % 7.4 % (2.0-8.0); NEUTROPHILS # 6.1 10^3/uL (1.5-8.5); NEUTROPHILS % 67.8 % (36.0-66.0); PLATELET COUNT, AUTOMATED 159 10^3/uL (150-450)
[2023-09-08 06:52] LABS: BLOOD UREA NITROGEN 13 MG/DL (9-23); CALCIUM LEVEL 7.9 MG/DL (8.5-10.1); CARBON DIOXIDE LEVEL 18 MMOL/L (20-31); CHLORIDE LEVEL 115 MMOL/L (98-107); CREATININE FOR GFR 0.88 MG/DL (0.70-1.30); GLOMERULAR FILTRATION RATE > 60.0 (>56); GLUCOSE, FASTING 103 MG/DL (60-100); POTASSIUM SERUM 3.4 MMOL/L (3.5-5.1); SODIUM LEVEL 143 MMOL/L (136-145)
[2023-09-08] MEDS: ENOXAPARIN 40MG/0.4ML SYRINGE (J1650 PER 10MG) SC SCH (08:00)
[2023-09-08] MEDS: KCL 10MEQ/100ML SWI (KRUN) 10 MEQ in IV 1 EA IV SCH ×2 (08:12→10:19)
[2023-09-08] MEDS: NICOTINE 21MG/24HR 1 EA TRANSDERMAL TD SCH (08:12)
[2023-09-08] MEDS: ASPIRIN 81MG ENTERIC TABLET PO SCH (08:12)
[2023-09-08] MEDS: MULTIVITAMINS/MINERALS THERAP 1 TAB PO SCH (08:12)
[2023-09-08] MEDS: PREGABALIN 75 MG CAP(LYRICA) PO SCH (08:13)
[2023-09-08] MEDS: TOPIRAMATE (TopAMAX) 100 MG TAB PO SCH (08:13)
[2023-09-08] MEDS: VITAMIN D 1,000 INTERNATIONAL UNITS TABLET PO SCH (08:13)
[2023-09-08] MEDS ORDERED: SENOKOT S TAB PO SCH (09:00)
[2023-09-08] MEDS: CEFTAROLINE FOSAMIL 600 MG in D5W MINI-BAG PLUS 50 ML IV SCH (09:23)
[2023-09-08] MEDS ORDERED: MAGNESIUM CITRATE 300ML BTL PO ONE (09:45)
[2023-09-08 14:00] VITALS: BP 158/75; TEMP 98.4; O2SAT 98
[2023-09-08 14:53] LABS: BLOOD UREA NITROGEN 11 MG/DL (9-23); CALCIUM LEVEL 8.4 MG/DL (8.5-10.1); CARBON DIOXIDE LEVEL 21 MMOL/L (20-31); CHLORIDE LEVEL 112 MMOL/L (98-107); CREATININE FOR GFR 0.84 MG/DL (0.70-1.30); GLOMERULAR FILTRATION RATE > 60.0 (>56); GLUCOSE, FASTING 110 MG/DL (60-100); POTASSIUM SERUM 3.6 MMOL/L (3.5-5.1); SODIUM LEVEL 141 MMOL/L (136-145)
[2023-09-08] MEDS ORDERED: DOXY-444 PO (15:12)
[2023-09-08] MEDS ORDERED: CEFD300C PO (15:12)
== END 2023-09-08 15:49 | disposition home or self-care (01) | DRG 872 ==
LOC: M ED 09:57 → M ED INP 14:35 → ENRESERV 15:27 → M PCU 15:56 → M MS4PR 20:48 → M MSPAV 09-07 00:43
PROVIDERS: ADMIT Internal Medicine Nephrology; ATTEND Student in an Organized Health Care Education/Training Program
DX: A41.9 Sepsis, unspecified organism (principal); L03.114 Cellulitis of left upper limb; M17.0 Bilateral primary osteoarthritis of knee; M17.11 Unilateral primary osteoarthritis, right knee; R10.9 Unspecified abdominal pain; G89.29 Other chronic pain; G43.109 Migraine with aura, not intractable, without status migrainosus; E78.5 Hyperlipidemia, unspecified; I73.9 Peripheral vascular disease, unspecified; K59.00 Constipation, unspecified; F17.200 Nicotine dependence, unspecified, uncomplicated; G62.9 Polyneuropathy, unspecified; Z79.82 Long term (current) use of aspirin; Z79.899 Other long term (current) drug therapy; Z88.0 Allergy status to penicillin; Z88.2 Allergy status to sulfonamides; Z20.822 Contact with and (suspected) exposure to COVID-19; Z90.49 Acquired absence of other specified parts of digestive tract

== ENCOUNTER → 2024-03-27 | Outpatient (REF) | payer MEDICARE ==
[~2024-03-27] MED LIST changes: +AMIT100TA PO; +AMIT75TA PO; +ASPI81TA26 PO; +CEFD300C PO; +CHOL125C6 PO; +CVS1CAP5 PO; +DOXY-440 PO; +ONDA-282 SL; -ONDA4TAB6 SL; +PROP20TA PO; +RIME75TA PO; +TRAZ-252 PO; +TRAZ-257 PO
[2024-03-27 13:34] LABS: BASO # 0.1 10^3/uL (0.0-0.2); BASO % 0.9 % (0.0-1.0); EOS # 0.4 10^3/uL (0.0-0.5); EOS % 5.2 % (0.0-3.0); HEMATOCRIT 42.7 % (42.0-52.0); HEMOGLOBIN 14.4 g/dl (13.5-17.5); LYMPH # 1.5 10^3/uL (1.5-5.0); LYMPH % 19.3 % (24.0-44.0); MEAN CORPUSCULAR HEMOGLOBIN 34.5 pg (27.0-33.0); MEAN CORPUSCULAR HGB CONC 33.7 g/dl (32.0-36.5); MEAN CORPUSCULAR VOLUME 102.4 fl (80.0-96.0); MONO # 0.9 10^3/uL (0.0-0.8); MONO % 11.3 % (2.0-8.0); NEUTROPHILS # 4.8 10^3/uL (1.5-8.5); NEUTROPHILS % 62.9 % (36.0-66.0); PLATELET COUNT, AUTOMATED 211 10^3/uL (150-450); RED BLOOD COUNT 4.17 10^6/uL (4.30-6.10); WHITE BLOOD COUNT 7.6 10^3/uL (4.0-10.0)
[2024-03-27 13:41] LABS: ALBUMIN 3.5 G/DL (3.2-5.2); ALKALINE PHOSPHATASE 122 U/L (46-116); ALT/SGPT 50 U/L (7.0-40); AST/SGOT 49 U/L (<34); BILIRUBIN,TOTAL 0.5 MG/DL (0.3-1.2); BLOOD UREA NITROGEN 26 MG/DL (9-23); CALCIUM LEVEL 9.2 MG/DL (8.5-10.1); CARBON DIOXIDE LEVEL 24 MMOL/L (20-31); CHLORIDE LEVEL 109 MMOL/L (98-107); CHOLESTEROL LEVEL 119 MG/DL (<200); CREATININE FOR GFR 1.02 MG/DL (0.70-1.30); GLOMERULAR FILTRATION RATE > 60.0 (>56); GLUCOSE, FASTING 97 MG/DL (60-100); HDL CHOLESTEROL 49.4 MG/DL (>40); LDL CHOLESTEROL 45.4 MG/DL (<100); NON-HDL-C 69.6 MG/DL; POTASSIUM SERUM 3.6 MMOL/L (3.5-5.1); PSA SCREENING 0.33 NG/ML (< 4.00); SODIUM LEVEL 141 MMOL/L (136-145); TOTAL PROTEIN 6.7 G/DL (5.7-8.2); TRIGLYCERIDES LEVEL 121 MG/DL (<150)
[2024-03-27 13:44] LABS: THYROID STIMULATING HORMONE 1.317 uIU/ML (0.55-4.78)
[2024-03-27 13:45] LABS: FREE T4 1.04 NG/DL (0.89-1.76)
== END ==
LOC: M SFHCADAM 08:24
PROVIDERS: ATTEND Physician Assistant
DX: R19.7 Diarrhea, unspecified (principal); E78.00 Pure hypercholesterolemia, unspecified; E55.9 Vitamin D deficiency, unspecified; Z12.11 Encounter for screening for malignant neoplasm of colon; F17.210 Nicotine dependence, cigarettes, uncomplicated; Z12.5 Encounter for screening for malignant neoplasm of prostate
CPT/HCPCS: 80053; 80061; 84439; 84443; 85025; G0103

== ENCOUNTER → 2024-03-29 | Outpatient (REF) | payer MEDICARE ==
[2024-03-29 14:51] LABS: VITAMIN B12 LEVEL 628 PG/ML (211-911)
[2024-03-29 15:08] LABS: FOLATE > 24.0 NG/ML (>5.4)
== END ==
LOC: M SFHCADAM 09:35
PROVIDERS: ATTEND Physician Assistant
DX: R19.7 Diarrhea, unspecified (principal); F17.210 Nicotine dependence, cigarettes, uncomplicated; Z86.73 Personal history of transient ischemic attack (TIA), and cerebral infarction without residual deficits; I73.9 Peripheral vascular disease, unspecified; F11.20 Opioid dependence, uncomplicated; M79.2 Neuralgia and neuritis, unspecified; M79.642 Pain in left hand; D75.89 Other specified diseases of blood and blood-forming organs

== ENCOUNTER → 2024-03-29 | Outpatient (CLI) | payer MEDICARE | LOC: M ADAMS 09:58 | PROVIDERS: ATTEND Physician Assistant | DX: M79.642 Pain in left hand (principal) ==

== ENCOUNTER → 2024-03-30 | Outpatient (REF) | payer MEDICARE | LOC: M SFHCADAM 14:38 | PROVIDERS: ATTEND Physician Assistant | DX: R19.7 Diarrhea, unspecified (principal) ==

== ENCOUNTER → 2024-06-20 | Outpatient (CLI) | payer MEDICARE | LOC: M RAD 08:35 | PROVIDERS: ATTEND Physician Assistant | DX: Z12.2 Encounter for screening for malignant neoplasm of respiratory organs (principal); F17.210 Nicotine dependence, cigarettes, uncomplicated ==

== ENCOUNTER → 2024-10-01 | Outpatient (CLI) | payer MEDICARE ==
[2024-10-01 12:46] LABS: BASO # 0.1 10^3/uL (0.0-0.2); BASO % 0.9 % (0.0-1.0); EOS # 0.2 10^3/uL (0.0-0.5); EOS % 2.7 % (0.0-3.0); HEMATOCRIT 42.6 % (42.0-52.0); HEMOGLOBIN 14.5 g/dl (13.5-17.5); LYMPH # 2.5 10^3/uL (1.5-5.0); LYMPH % 33.2 % (24.0-44.0); MEAN CORPUSCULAR VOLUME 99.8 fl (80.0-96.0); MONO # 0.6 10^3/uL (0.0-0.8); MONO % 8.6 % (2.0-8.0); NEUTROPHILS % 54.3 % (36.0-66.0); PLATELET COUNT, AUTOMATED 218 10^3/uL (150-450); RED BLOOD COUNT 4.27 10^6/uL (4.30-6.10); WHITE BLOOD COUNT 7.4 10^3/uL (4.0-10.0)
[2024-10-01 13:12] LABS: ALBUMIN 3.4 G/DL (3.2-5.2); ALKALINE PHOSPHATASE 100 U/L (40-129); ALT/SGPT 55 U/L (7.0-40); AST/SGOT 47 U/L (<34); BILIRUBIN,TOTAL 0.3 MG/DL (0.3-1.2); BLOOD UREA NITROGEN 20 MG/DL (9-23); CALCIUM LEVEL 8.8 MG/DL (8.5-10.1); CARBON DIOXIDE LEVEL 28 MMOL/L (20-31); CHLORIDE LEVEL 111 MMOL/L (98-107); CREATININE FOR GFR 0.95 MG/DL (0.70-1.30); GLOMERULAR FILTRATION RATE > 60.0 (>56); GLUCOSE, FASTING 91 MG/DL (60-100); POTASSIUM SERUM 4.2 MMOL/L (3.5-5.1); SODIUM LEVEL 144 MMOL/L (136-145); TOTAL PROTEIN 6.8 G/DL (5.7-8.2)
== END ==
LOC: M WUC 10:34
PROVIDERS: ATTEND Physician Assistant
DX: E78.00 Pure hypercholesterolemia, unspecified (principal); F17.210 Nicotine dependence, cigarettes, uncomplicated; F11.20 Opioid dependence, uncomplicated

== ENCOUNTER → 2024-10-04 | Outpatient (REF) | payer MEDICARE | LOC: M SFHCADAM 08:48 | PROVIDERS: ATTEND Physician Assistant | DX: R19.7 Diarrhea, unspecified (principal) ==

== ENCOUNTER → 2024-10-05 | Outpatient (REF) | payer MEDICARE | LOC: M SFHCADAM 11:20 | PROVIDERS: ATTEND Physician Assistant | DX: R19.7 Diarrhea, unspecified (principal) ==

== ENCOUNTER → 2024-11-20 | Outpatient (CLI) | payer MEDICARE ==
[2024-11-20 18:50] LABS: BASO # 0.1 10^3/uL (0.0-0.2); BASO % 0.7 % (0.0-1.0); EOS # 0.3 10^3/uL (0.0-0.5); EOS % 3.2 % (0.0-3.0); HEMATOCRIT 44.2 % (42.0-52.0); LYMPH # 2.9 10^3/uL (1.5-5.0); LYMPH % 35.5 % (24.0-44.0); MEAN CORPUSCULAR HEMOGLOBIN 33.7 pg (27.0-33.0); MEAN CORPUSCULAR HGB CONC 33.9 g/dl (32.0-36.5); MEAN CORPUSCULAR VOLUME 99.3 fl (80.0-96.0); MONO # 0.8 10^3/uL (0.0-0.8); MONO % 10.2 % (2.0-8.0); NEUTROPHILS # 4.1 10^3/uL (1.5-8.5); PLATELET COUNT, AUTOMATED 216 10^3/uL (150-450); RED BLOOD COUNT 4.45 10^6/uL (4.30-6.10); WHITE BLOOD COUNT 8.2 10^3/uL (4.0-10.0)
[2024-11-20 19:15] LABS: ALBUMIN 3.5 G/DL (3.2-5.2); ALKALINE PHOSPHATASE 120 U/L (40-129); ALT/SGPT 72 U/L (7.0-40); AST/SGOT 61 U/L (<34); BILIRUBIN,TOTAL 0.6 MG/DL (0.3-1.2); BLOOD UREA NITROGEN 24 MG/DL (9-23); CALCIUM LEVEL 9.3 MG/DL (8.5-10.1); CARBON DIOXIDE LEVEL 25 MMOL/L (20-31); CHLORIDE LEVEL 109 MMOL/L (98-107); CREATININE FOR GFR 1.03 MG/DL (0.70-1.30); GLOMERULAR FILTRATION RATE > 60.0 (>56); GLUCOSE, FASTING 89 MG/DL (60-100); MAGNESIUM LEVEL 1.9 MG/DL (1.8-2.4); POTASSIUM SERUM 3.4 MMOL/L (3.5-5.1); SODIUM LEVEL 143 MMOL/L (136-145); TOTAL PROTEIN 7.3 G/DL (5.7-8.2)
== END ==
LOC: M WUC 15:45
PROVIDERS: ATTEND Physician Assistant
DX: A04.72 Enterocolitis due to Clostridium difficile, not specified as recurrent (principal)

== ENCOUNTER → 2024-11-25 | Outpatient (REF) | payer MEDICARE ==
[2024-11-25 12:57] LABS: CLOSTRIDIUM DIFFICILE PCR NEGATIVE (NEGATIVE)
== END ==
LOC: M LAB REF 11:31
PROVIDERS: ATTEND Internal Medicine Infectious Disease
DX: A04.71 Enterocolitis due to Clostridium difficile, recurrent (principal)

== ENCOUNTER → 2025-01-15 | Outpatient (REF) | payer MEDICARE ==
[~2025-01-15] MED LIST changes: -FLOM0.4C39 PO; +TAMS-18 PO; +TOPI-257 PO; -TOPI100T9 PO
[2025-01-15 12:12] LABS: CLOSTRIDIUM DIFFICILE PCR POSITIVE (NEGATIVE)
== END ==
LOC: M SFHCPLAZ 10:48
PROVIDERS: ATTEND Internal Medicine Infectious Disease
DX: A04.71 Enterocolitis due to Clostridium difficile, recurrent (principal)

== ENCOUNTER 2025-02-01 15:55 | Outpatient (CLI) | payer MEDICARE ==
[~2025-02-01] VITALS: Ht 172.7 cm; Wt 58.2 kg
[2025-02-01 16:24] VITALS: BP 128/74; O2SAT 99
[2025-02-01] MEDS: [UNRECOGNIZED DRUG - OTHER] RC ONE (16:30)
[2025-02-01 16:42] VITALS: BP 118/66; O2SAT 96
== END 2025-02-01 16:45 | disposition home or self-care (01) ==
LOC: M INFU 15:55
PROVIDERS: ATTEND Physician Assistant
DX: A04.71 Enterocolitis due to Clostridium difficile, recurrent (principal); Z88.0 Allergy status to penicillin; Z88.2 Allergy status to sulfonamides

== ENCOUNTER → 2025-02-07 | Outpatient (REF) | payer MEDICARE | LOC: M SFHCPLAZ 09:52 | PROVIDERS: ATTEND Internal Medicine Infectious Disease | DX: A04.72 Enterocolitis due to Clostridium difficile, not specified as recurrent (principal); R19.7 Diarrhea, unspecified ==

== ENCOUNTER 2025-03-02 09:30 | Inpatient (IN) | payer MEDICARE ==
[2025-03-02] VITALS (13 sets, daily range): BP systolic 132–161; BP diastolic 70–96; TEMP 97.1; O2SAT 93–97
[~2025-03-02] VITALS: Ht 162.6 cm; Wt 58.3 kg
[2025-03-02] MEDS ORDERED: ISOVUE-370 76% 100 ML VIAL As Ordered ONE (10:09)
[2025-03-02] MEDS: diphenhydrAMINE 50 MG/ML VIAL IV STA (10:14)
[2025-03-02 10:15] LABS: VENOUS BASE EXCESS -0.9 (-2.0-2.0); VENOUS HCO3 23.5 MMOL/L (23.0-27.0); VENOUS O2 SATURATION 83.5 % (60.0-80.0); VENOUS PARTIAL PRESSURE CO2 38.5 mmHg (38.0-50.0); VENOUS PARTIAL PRESSURE O2 45.8 mmHg (30.0-50.0); VENOUS PH 7.404 UNITS (7.330-7.430); VENOUS STANDARD HCO3 23.4 MMOL/L; VENOUS TOTAL CO2 24.7 MMOL/L (24.0-28.0)
[2025-03-02] MEDS: NS 500 ML IV ONE (10:15)
[2025-03-02 10:22] LABS: BASO # 0.0 10^3/uL (0.0-0.2); BASO % 0.5 % (0.0-1.0); EOS # 0.2 10^3/uL (0.0-0.5); EOS % 2.5 % (0.0-3.0); LYMPH # 2.2 10^3/uL (1.5-5.0); LYMPH % 28.9 % (24.0-44.0); MONO # 0.5 10^3/uL (0.0-0.8); MONO % 7.0 % (2.0-8.0); NEUTROPHILS # 4.7 10^3/uL (1.5-8.5); NEUTROPHILS % 60.8 % (36.0-66.0); PLATELET COUNT, AUTOMATED 256 10^3/uL (150-450)
[2025-03-02 10:36] LABS: INR 0.97
[2025-03-02 10:44] LABS: CK-MB VALUE MASS 1.7 NG/ML (<3.6)
[2025-03-02 10:46] LABS: CPK CREATINE PHOSPHOKINASE 228 U/L (46-171); MB/CK RELATIVE INDEX 0.74 (< OR =4)
[2025-03-02 10:54] LABS: ALT/SGPT 39 U/L (7.0-40); CALCIUM LEVEL 8.6 MG/DL (8.5-10.1); CARBON DIOXIDE LEVEL 24 MMOL/L (20-31); CHLORIDE LEVEL 111 MMOL/L (98-107); CREATININE FOR GFR 0.86 MG/DL (0.70-1.30); GLOMERULAR FILTRATION RATE > 90.0 (>56); POTASSIUM SERUM 3.6 MMOL/L (3.5-5.1); SODIUM LEVEL 143 MMOL/L (136-145)
[2025-03-02 11:15] LABS: AST/SGOT 35 U/L (<34)
[2025-03-02 11:58] LABS: CK-MB VALUE MASS < 1.0 NG/ML (<3.6)
[2025-03-02 12:00] LABS: CPK CREATINE PHOSPHOKINASE 173 U/L (46-171)
[2025-03-02] MEDS: MORPHINE 2 MG/ML 1 ML VIAL IV PRN (12:01)
[2025-03-02] MEDS: NS (Normal Saline) 0.9% 1,000 ML IV ONE (12:43)
[2025-03-02 12:52] LABS: ETHYL ALCOHOL (ETHANOL) 0.007 % (0.000-0.010); MAGNESIUM LEVEL 1.9 MG/DL (1.8-2.4)
[2025-03-02 12:54] LABS: SALICYLATE LEVEL < 3.0 MG/DL (<30)
[2025-03-02] MEDS: PERCOCET 5MG/325MG TAB PO ONE (16:10)
[2025-03-02] MEDS: D5W/0.45% SODIUM CHLORIDE 1,000 ML IV ONE (16:18)
[2025-03-02] MEDS: MORPHINE 4 MG/ML 1 ML VIAL IV ONE (16:54)
[2025-03-02] MEDS ORDERED: POTA-298 PO (18:12)
[2025-03-02] MEDS ORDERED: PREG100C2 PO (18:14)
[2025-03-02] MEDS ORDERED: PROP40TA62 PO (18:14)
[2025-03-02] MEDS ORDERED: MELO7.5T35 PO (18:14)
[2025-03-02] MEDS ORDERED: MOTR200T44 PO (18:15)
[2025-03-02] MEDS ORDERED: HOME MED LIST COMPLETE! XX SCH (18:20)
[2025-03-02] MEDS: PROPRANOLOL 20 MG TAB PO SCH (22:54)
[2025-03-02] MEDS: HEPARIN SOD 5000 UNITS/ML 1 ML VIAL/SYRINGE SQ ONE (22:54)
[2025-03-02] MEDS: PREGABALIN 100 MG CAP PO SCH (23:14)
[2025-03-02] MEDS: AMITRIPTYLINE 50MG TAB PO SCH (23:14)
[2025-03-02] MEDS: MULTIVITAMINS/MINERALS THERAP 1 TAB PO SCH (23:15)
[2025-03-02] MEDS: FOLIC ACID 1 MG TAB PO SCH (23:15)
[2025-03-02] MEDS: traZODone 100 MG TAB PO PRN (23:15)
[2025-03-02] MEDS: TOPIRAMATE 100 MG TAB PO SCH (23:15)
[2025-03-02] MEDS: THIAMINE 100 MG TAB PO SCH (23:16)
[2025-03-02] MEDS: PANTOPRAZOLE 40MG VIAL IV SCH (23:16)
[2025-03-02 23:30] LABS: APPEARANCE, URINE CLEAR (CLEAR); BACTERIA, URINE AUTO NEGATIVE (NEGATIVE); BILIRUBIN, URINE AUTO NEGATIVE (NEGATIVE); BLOOD, URINE BLOOD NEGATIVE (NEGATIVE); GLUCOSE, URINE (UA) AUTO 1+ mg/dL (NEGATIVE); KETONE, URINE AUTO 1+ mg/dL (NEGATIVE); LEUKOCYTE ESTERASE, URINE AUTO NEGATIVE (NEGATIVE); MUCUS, URINE SMALL (NEGATIVE); NITRITE, URINE AUTO NEGATIVE (NEGATIVE); PROTEIN, URINE AUTO NEGATIVE (NEGATIVE); RBC, URINE AUTO 1 /HPF (0-3); SPECIFIC GRAVITY URINE AUTO 1.045 (1.002-1.035); SQUAMOUS EPITHELIAL CELL UR AU 0 /HPF (0-6); UROBILINOGEN, URINE AUTO 0.2 mg/dL (0.0-2.0); WBC, URINE AUTO 2 /HPF (0-3)
[2025-03-03] VITALS (37 sets, daily range): BP systolic 103–173; BP diastolic 62–100; TEMP 97.8–98.2; O2SAT 93–100
[2025-03-03] MEDS: ACETAMINOPHEN *IV* 1,000 MG in IV 1 EA IV ONE (00:09)
[2025-03-03] MEDS: NS (Normal Saline) 0.9% 1,000 ML IV SCH (00:09)
[2025-03-03 05:06] LABS: PLATELET COUNT, AUTOMATED 214 10^3/uL (150-450)
[2025-03-03 05:50] LABS: ALT/SGPT 30 U/L (7.0-40); AST/SGOT 23 U/L (<34); CALCIUM LEVEL 8.3 MG/DL (8.5-10.1); CARBON DIOXIDE LEVEL 21 MMOL/L (20-31); CHLORIDE LEVEL 112 MMOL/L (98-107); CREATININE FOR GFR 0.75 MG/DL (0.70-1.30); GLOMERULAR FILTRATION RATE > 90.0 (>56); POTASSIUM SERUM 3.8 MMOL/L (3.5-5.1); SODIUM LEVEL 142 MMOL/L (136-145)
[2025-03-03] MEDS ORDERED: FOLIC ACID 1 MG TAB PO SCH (09:00)
[2025-03-03] MEDS ORDERED: PANTOPRAZOLE 40MG VIAL IV SCH (09:00)
[2025-03-03] MEDS ORDERED: MULTIVITAMINS/MINERALS THERAP 1 TAB PO SCH (09:00)
[2025-03-03] MEDS: CYCLOBENZAPRINE 10 MG TABLET PO STA (09:44)
[2025-03-03] MEDS ORDERED: CYCLOBENZAPRINE 10 MG TABLET PO ONE (10:00)
[2025-03-03] MEDS ORDERED: PROPOFOL 1,000 MG/100 ML VIAL As Ordered ONE (13:51)
[2025-03-03] MEDS ORDERED: ROCURONIUM BROMIDE 50MG/5ML VIAL As Ordered ONE (13:59)
[2025-03-03] MEDS ORDERED: SUCCINYLCHOLINE 100MG/5ML SYRINGE As Ordered ONE (13:59)
[2025-03-03] MEDS ORDERED: LIDOCAINE 2% 100 MG/5 ML SDV (FOR ANES.) As Ordered ONE (13:59)
[2025-03-03] MEDS ORDERED: HYDROmorphone HCL 2 MG/ML 1 ML VIAL As Ordered ONE (13:59)
[2025-03-03] MEDS ORDERED: MIDAZOLAM INJ 2 MG/2 ML VIAL As Ordered ONE (14:00)
[2025-03-03] MEDS ORDERED: PHENYLephrine 500MCG 5ML (100MCG/ML) SYRINGE As Ordered ONE (14:00)
[2025-03-03] MEDS ORDERED: REMIFENTANIL 1MG VIAL As Ordered ONE (14:01)
[2025-03-03] MEDS ORDERED: NOREPINEPHRINE 4MG/4ML AMP As Ordered ONE (14:02)
[2025-03-03] MEDS ORDERED: dexAMETHasone 4 MG/ML 1 ML VIAL As Ordered ONE (15:03)
[2025-03-03] MEDS: POLYSPORIN TOPICAL OINTMENT 15GM As Ordered ONE (15:28)
[2025-03-03] MEDS ORDERED: GLYCOPYRROLATE INJ 0.2 MG/ML 2 ML VIAL As Ordered ONE (17:58)
[2025-03-03] MEDS ORDERED: CALCIUM CHLORIDE 10% 1 GM/10 ML SYR As Ordered ONE (19:15)
[2025-03-03] MEDS: VANCOMYCIN 1000MG/20ML VIAL As Ordered ONE (19:34)
[2025-03-03] MEDS ORDERED: ONDANSETRON 4MG 2ML VIAL As Ordered ONE (23:24)
[2025-03-03] MEDS ORDERED: METOPROLOL 5 MG/5 ML VIAL As Ordered ONE (23:59)
[2025-03-04] VITALS (47 sets, daily range): BP systolic 117–190; BP diastolic 69–118; TEMP 97.9–98.6; O2SAT 96–100
[2025-03-04] MEDS ORDERED: ACETAMINOPHEN 1000MG/100ML IV BAG As Ordered ONE (00:11)
[2025-03-04] MEDS ORDERED: MOM 30 ML SUSPENSION UDC PO PRN (01:30)
[2025-03-04] MEDS: NS (Normal Saline) 0.9% 1,000 ML IV SCH (01:30)
[2025-03-04] MEDS: ACETAMINOPHEN *IV* 1,000 MG in IV 1 EA IV ONE (02:36)
[2025-03-04 02:57] LABS: PLATELET COUNT, AUTOMATED 205 10^3/uL (150-450)
[2025-03-04 03:27] LABS: CALCIUM LEVEL 8.0 MG/DL (8.5-10.1); CARBON DIOXIDE LEVEL 23 MMOL/L (20-31); CHLORIDE LEVEL 115 MMOL/L (98-107); CREATININE FOR GFR 0.74 MG/DL (0.70-1.30); GLOMERULAR FILTRATION RATE > 90.0 (>56); POTASSIUM SERUM 4.2 MMOL/L (3.5-5.1); SODIUM LEVEL 147 MMOL/L (136-145)
[2025-03-04] MEDS: HYDROmorphone HCL 2 MG/ML 1 ML VIAL IV ONE ×2 (06:01→23:46)
[2025-03-04] MEDS: ceFAZolin SODIUM 2 GM in DEXTROSE 5% (D5W) ADV/MINI-BAG 50 ML IV SCH (06:02)
[2025-03-04 06:58] LABS: PLATELET COUNT, AUTOMATED 185 10^3/uL (150-450)
[2025-03-04 07:32] LABS: ALT/SGPT 26 U/L (7.0-40); CALCIUM LEVEL 7.8 MG/DL (8.5-10.1); CARBON DIOXIDE LEVEL 24 MMOL/L (20-31); CHLORIDE LEVEL 114 MMOL/L (98-107); CREATININE FOR GFR 0.77 MG/DL (0.70-1.30); GLOMERULAR FILTRATION RATE > 90.0 (>56); POTASSIUM SERUM 3.6 MMOL/L (3.5-5.1); SODIUM LEVEL 147 MMOL/L (136-145)
[2025-03-04 07:45] LABS: AST/SGOT 50 U/L (<34)
[2025-03-04] MEDS: ACETAMINOPHEN 325 MG TAB PO SCH (08:52)
[2025-03-04] MEDS: DOCUSATE SODIUM 100 MG CAPSULE PO SCH (09:00)
[2025-03-04] MEDS ORDERED: LABETALOL 100 MG/20 ML VIAL IV PRN ×2 (11:30→11:40)
[2025-03-04] MEDS: ACETAMINOPHEN *IV* 1,000 MG in IV 1 EA IV PRN ×2 (13:17→20:23)
[2025-03-04] MEDS: hydrALAZINE 20 MG/ML 1 ML VIAL IV PRN (13:18)
[2025-03-04] MEDS: KETOROLAC 30 MG/ML 1 ML VIAL IV PRN (14:25)
[2025-03-04] MEDS ORDERED: MORPHINE 4 MG/ML 1 ML VIAL IV PRN ×3 (14:25→15:10)
[2025-03-04] MEDS: FAMOTIDINE 20 MG TAB PO SCH (20:07)
[2025-03-04] MEDS: MORPHINE 4 MG/ML 1 ML VIAL IV PRN (20:07)
[2025-03-04] MEDS: SENNA 8.6 MG TAB PO SCH (20:08)
[2025-03-05] VITALS (24 sets, daily range): BP systolic 100–157; BP diastolic 68–93; TEMP 98.4–100.6; O2SAT 93–99
[2025-03-05 06:21] LABS: PLATELET COUNT, AUTOMATED 184 10^3/uL (150-450)
[2025-03-05 06:50] LABS: ALT/SGPT 28 U/L (7.0-40); CALCIUM LEVEL 8.2 MG/DL (8.5-10.1); CARBON DIOXIDE LEVEL 25 MMOL/L (20-31); CHLORIDE LEVEL 105 MMOL/L (98-107); CREATININE FOR GFR 0.67 MG/DL (0.70-1.30); GLOMERULAR FILTRATION RATE > 90.0 (>56); POTASSIUM SERUM 3.3 MMOL/L (3.5-5.1); SODIUM LEVEL 140 MMOL/L (136-145)
[2025-03-05 07:21] LABS: AST/SGOT 53 U/L (<34)
[2025-03-05] MEDS: POTASSIUM CHLORIDE 10MEQ SR TABLET PO ONE (08:58)
[2025-03-05] MEDS ORDERED: ENOXAPARIN 40 MG/0.4 ML SYRINGE (J1650 PER 10MG) SC SCH (09:00)
[2025-03-05] MEDS: KETOROLAC 30 MG/ML 1 ML VIAL IV PRN (09:59)
[2025-03-05] MEDS: SENNA 8.6 MG TAB PO SCH (10:00)
[2025-03-05] MEDS: ENOXAPARIN 40 MG/0.4 ML SYRINGE (J1650 PER 10MG) SC SCH (12:28)
[2025-03-05] MEDS: MORPHINE 4 MG/ML 1 ML VIAL IV PRN (20:19)
[2025-03-06] VITALS (14 sets, daily range): BP systolic 106–136; BP diastolic 63–86; TEMP 97.2–100.6; O2SAT 96–99
[2025-03-06 05:03] LABS: PLATELET COUNT, AUTOMATED 183 10^3/uL (150-450)
[2025-03-06 05:23] LABS: ALT/SGPT 48 U/L (7.0-40); AST/SGOT 86 U/L (<34); CALCIUM LEVEL 8.8 MG/DL (8.5-10.1); CARBON DIOXIDE LEVEL 26 MMOL/L (20-31); CHLORIDE LEVEL 105 MMOL/L (98-107); CREATININE FOR GFR 0.83 MG/DL (0.70-1.30); GLOMERULAR FILTRATION RATE > 90.0 (>56); POTASSIUM SERUM 3.3 MMOL/L (3.5-5.1); SODIUM LEVEL 141 MMOL/L (136-145)
[2025-03-06] MEDS: POTASSIUM CHLORIDE 10MEQ SR TABLET PO ONE (08:33)
[2025-03-06] MEDS: traMADol 50 MG TAB PO PRN (08:35)
[2025-03-06] MEDS: LACTULOSE 20 GM/30 ML SYRUP UDC PO ONE (08:48)
[2025-03-06] MEDS ORDERED: ENOXAPARIN 40 MG/0.4 ML SYRINGE (J1650 PER 10MG) SC SCH (09:00)
[2025-03-06] MEDS: LIDOCAINE 5% PATCH TD SCH ×2 (10:18)
[2025-03-06 10:32] LABS: MAGNESIUM LEVEL 1.8 MG/DL (1.8-2.4)
[2025-03-06] MEDS: ACETAMINOPHEN 325 MG TAB PO SCH (12:12)
[2025-03-06] MEDS ORDERED: ACETAMINOPHEN *IV* 1,000 MG in IV 1 EA IV PRN (16:00)
[2025-03-07] VITALS (14 sets, daily range): BP systolic 99–137; BP diastolic 70–80; TEMP 97.4–103.5; O2SAT 95–99
[2025-03-07 05:57] LABS: PLATELET COUNT, AUTOMATED 193 10^3/uL (150-450)
[2025-03-07 06:30] LABS: FREE T4 1.22 NG/DL (0.89-1.76)
[2025-03-07 06:32] LABS: ALT/SGPT 299 U/L (7.0-40); AST/SGOT 447 U/L (<34); CALCIUM LEVEL 8.6 MG/DL (8.5-10.1); CARBON DIOXIDE LEVEL 26 MMOL/L (20-31); CHLORIDE LEVEL 105 MMOL/L (98-107); CREATININE FOR GFR 0.72 MG/DL (0.70-1.30); GLOMERULAR FILTRATION RATE > 90.0 (>56); POTASSIUM SERUM 3.7 MMOL/L (3.5-5.1); SODIUM LEVEL 140 MMOL/L (136-145)
[2025-03-07 06:44] LABS: ESTIMATED AVERAGE GLUCOSE 97.0 MG/DL (60-110)
[2025-03-07] MEDS: BISACODYL 10 MG SUPP PR ONE (08:43)
[2025-03-07] MEDS ORDERED: TOPIRAMATE 25 MG TAB PO SCH (09:00)
[2025-03-07 09:21] LABS: INR 1.06
[2025-03-07 21:29] LABS: BASO # 0.0 10^3/uL (0.0-0.2); BASO % 0.4 % (0.0-1.0); EOS # 0.4 10^3/uL (0.0-0.5); EOS % 3.4 % (0.0-3.0); LYMPH # 1.6 10^3/uL (1.5-5.0); LYMPH % 14.7 % (24.0-44.0); MONO # 1.4 10^3/uL (0.0-0.8); MONO % 12.5 % (2.0-8.0); NEUTROPHILS # 7.6 10^3/uL (1.5-8.5); NEUTROPHILS % 68.5 % (36.0-66.0); PLATELET COUNT, AUTOMATED 218 10^3/uL (150-450)
[2025-03-07 21:56] LABS: KETONE, URINE AUTO RFX NEGATIVE (NEGATIVE); LEUKOCYTE ESTERASE UR AUTO RFX NEGATIVE (NEGATIVE); MUCUS, URINE RFX SMALL (NEGATIVE); NITRITE, URINE AUTO RFX NEGATIVE (NEGATIVE); RBC, URINE AUTO RFX 93 /HPF (0-3); SQUAM EPITHELIAL CELL UR AURFX 0 /HPF (0-6); WBC, URINE AUTO RFX 2 /HPF (0-3)
[2025-03-07 22:15] LABS: C REACTIVE PROTEIN QUANTITATIV 18.7 MG/DL (<1.0)
[2025-03-07] MEDS ORDERED: VANCOMYCIN HCL 920 MG in IV FLUID PLACE HOLDER 1 EA IV SCH (22:45)
[2025-03-07] MEDS: VANCOMYCIN HCL 1,250 MG, VIAL MATE ADAPTER 1 EACH in NS 250 ML IV ONE (23:11)
[2025-03-08] VITALS (21 sets, daily range): BP systolic 112–147; BP diastolic 70–84; TEMP 98.2–102.4; O2SAT 96–98
[2025-03-08] MEDS: CEFEPIME HCL 2 GM in DEXTROSE 5% (D5W) ADV/MINI-BAG 50 ML IV SCH (00:49)
[2025-03-08 05:52] LABS: PLATELET COUNT, AUTOMATED 249 10^3/uL (150-450)
[2025-03-08 06:18] LABS: ALT/SGPT 243 U/L (7.0-40); AST/SGOT 201 U/L (<34); CALCIUM LEVEL 8.7 MG/DL (8.5-10.1); CARBON DIOXIDE LEVEL 22 MMOL/L (20-31); CHLORIDE LEVEL 104 MMOL/L (98-107); CREATININE FOR GFR 0.71 MG/DL (0.70-1.30); GLOMERULAR FILTRATION RATE > 90.0 (>56); MAGNESIUM LEVEL 2.0 MG/DL (1.8-2.4); POTASSIUM SERUM 3.9 MMOL/L (3.5-5.1); SODIUM LEVEL 139 MMOL/L (136-145)
[2025-03-08] MEDS: diphenhydrAMINE 50 MG/ML VIAL IV STA (07:14)
[2025-03-08] MEDS: MECLIZINE 25 MG TABLET PO ONE (07:14)
[2025-03-08] MEDS: HYDROCORTISONE 100 MG/2 ML VIAL IV ONE (07:14)
[2025-03-08 07:38] LABS: VANCOMYCIN RANDOM 14.8 UG/ML
[2025-03-08] MEDS: MUPIROCIN 2% OINT 22 GM TUBE TOP SCH (09:00)
[2025-03-08] MEDS: VANCOMYCIN HCL 1,000 MG, VIAL MATE ADAPTER 1 EACH in NS 250 ML IV SCH (10:03)
[2025-03-08] MEDS: IBUPROFEN 600 MG TAB PO ONE (10:03)
[2025-03-08] MEDS: MECLIZINE 25 MG TABLET PO PRN (10:16)
[2025-03-08] MEDS: POLYVINYL ALCOHOL OPHTH SOLN 15ML (LIQUITEARS) OU PRN (16:54)
[2025-03-08] MEDS: MIRTAZAPINE 15 MG TAB PO SCH (20:54)
[2025-03-09] VITALS (21 sets, daily range): BP systolic 123–166; BP diastolic 75–87; TEMP 97.6–99.3; O2SAT 93–99
[2025-03-09] MEDS: traZODone 25MG PER 1/2 TABLET PO ONE (00:22)
[2025-03-09 06:08] LABS: PLATELET COUNT, AUTOMATED 326 10^3/uL (150-450)
[2025-03-09 06:26] LABS: ALT/SGPT 176 U/L (7.0-40); AST/SGOT 90 U/L (<34); CALCIUM LEVEL 9.2 MG/DL (8.5-10.1); CARBON DIOXIDE LEVEL 23 MMOL/L (20-31); CHLORIDE LEVEL 105 MMOL/L (98-107); CREATININE FOR GFR 0.65 MG/DL (0.70-1.30); GLOMERULAR FILTRATION RATE > 90.0 (>56); POTASSIUM SERUM 3.2 MMOL/L (3.5-5.1); SODIUM LEVEL 142 MMOL/L (136-145)
[2025-03-09 07:58] LABS: C REACTIVE PROTEIN QUANTITATIV 14.05 MG/DL (<1.0)
[2025-03-09] MEDS: POTASSIUM CHLORIDE 10MEQ SR TABLET PO ONE (08:19)
[2025-03-09] MEDS: SODIUM CHLORIDE HYPERTONIC 3% 4ML NEB SOL NEB ONE (11:27)
[2025-03-09] MEDS: MECLIZINE 25 MG TABLET PO ONE (16:09)
[2025-03-09] MEDS: VANCOMYCIN 125MG CAPSULE PO SCH (16:10)
[2025-03-09] MEDS: ALPRAZolam 0.25 MG TAB PO SCH (20:38)
[2025-03-09] MEDS: HYDROMORPHONE HCL 0.5 MG/0.5 ML SYRINGE IV PRN (21:32)
[2025-03-10] VITALS (18 sets, daily range): BP systolic 120–136; BP diastolic 81–92; TEMP 97.9–98.8; O2SAT 94–99
[2025-03-10 06:14] LABS: BASO # 0.1 10^3/uL (0.0-0.2); BASO % 0.5 % (0.0-1.0); EOS # 0.6 10^3/uL (0.0-0.5); EOS % 3.4 % (0.0-3.0); LYMPH # 1.5 10^3/uL (1.5-5.0); LYMPH % 8.7 % (24.0-44.0); MONO # 2.2 10^3/uL (0.0-0.8); MONO % 13.2 % (2.0-8.0); NEUTROPHILS # 12.3 10^3/uL (1.5-8.5); NEUTROPHILS % 73.6 % (36.0-66.0); PLATELET COUNT, AUTOMATED 384 10^3/uL (150-450)
[2025-03-10 06:41] LABS: ALT/SGPT 168 U/L (7.0-40); AST/SGOT 92 U/L (<34); CALCIUM LEVEL 9.0 MG/DL (8.5-10.1); CARBON DIOXIDE LEVEL 25 MMOL/L (20-31); CHLORIDE LEVEL 104 MMOL/L (98-107); CREATININE FOR GFR 0.66 MG/DL (0.70-1.30); GLOMERULAR FILTRATION RATE > 90.0 (>56); MAGNESIUM LEVEL 1.9 MG/DL (1.8-2.4); POTASSIUM SERUM 3.7 MMOL/L (3.5-5.1); SODIUM LEVEL 142 MMOL/L (136-145)
[2025-03-10] MEDS: HYDROMORPHONE HCL 0.5 MG/0.5 ML SYRINGE IV PRN (13:49)
[2025-03-10] MEDS ORDERED: PROHANCE 279.3MG/ML 15ML VIAL As Ordered ONE (13:50)
[2025-03-10] MEDS: ONDANSETRON 4MG ORAL DISINTEGRATING TAB SL PRN (18:03)
[2025-03-10] MEDS ORDERED: MIRTAZAPINE 15 MG TAB PO SCH (21:00)
[2025-03-10] MEDS: AMITRIPTYLINE 50MG TAB PO SCH (22:02)
[2025-03-10] MEDS: MIRTAZAPINE 15 MG TAB PO SCH (22:02)
[2025-03-10] MEDS: PREGABALIN 75 MG CAP PO SCH (22:03)
[2025-03-10] MEDS: diphenhydrAMINE 50 MG/ML VIAL IV ONE (22:03)
[2025-03-11] VITALS (24 sets, daily range): BP systolic 112–139; BP diastolic 67–85; TEMP 98–99; O2SAT 95–98
[2025-03-11 08:09] LABS: BASO # 0.1 10^3/uL (0.0-0.2); BASO % 0.5 % (0.0-1.0); EOS # 0.5 10^3/uL (0.0-0.5); EOS % 2.4 % (0.0-3.0); LYMPH # 1.9 10^3/uL (1.5-5.0); LYMPH % 9.1 % (24.0-44.0); MONO # 2.2 10^3/uL (0.0-0.8); MONO % 10.9 % (2.0-8.0); NEUTROPHILS # 15.7 10^3/uL (1.5-8.5); NEUTROPHILS % 76.5 % (36.0-66.0); PLATELET COUNT, AUTOMATED 436 10^3/uL (150-450)
[2025-03-11 08:32] LABS: ALT/SGPT 126 U/L (7.0-40); AST/SGOT 50 U/L (<34); CALCIUM LEVEL 9.1 MG/DL (8.5-10.1); CARBON DIOXIDE LEVEL 28 MMOL/L (20-31); CHLORIDE LEVEL 100 MMOL/L (98-107); CREATININE FOR GFR 0.61 MG/DL (0.70-1.30); GLOMERULAR FILTRATION RATE > 90.0 (>56); MAGNESIUM LEVEL 2.1 MG/DL (1.8-2.4); POTASSIUM SERUM 3.7 MMOL/L (3.5-5.1); SODIUM LEVEL 137 MMOL/L (136-145)
[2025-03-11] MEDS: BISACODYL 10 MG SUPP PR PRN (10:27)
[2025-03-11] MEDS: HYDROMORPHONE HCL 0.5 MG/0.5 ML SYRINGE IV PRN (17:36)
[2025-03-11] MEDS: PROPRANOLOL 10 MG TAB PO SCH (22:40)
[2025-03-12] VITALS (18 sets, daily range): BP systolic 104–129; BP diastolic 59–76; TEMP 97.3–98.9; O2SAT 95–99
[2025-03-12 06:24] LABS: BASO # 0.1 10^3/uL (0.0-0.2); BASO % 0.5 % (0.0-1.0); EOS # 0.5 10^3/uL (0.0-0.5); EOS % 2.3 % (0.0-3.0); LYMPH # 2.6 10^3/uL (1.5-5.0); LYMPH % 13.1 % (24.0-44.0); MONO # 2.0 10^3/uL (0.0-0.8); MONO % 9.7 % (2.0-8.0); NEUTROPHILS # 14.8 10^3/uL (1.5-8.5); NEUTROPHILS % 73.5 % (36.0-66.0)
[2025-03-12 06:27] LABS: PLATELET COUNT, AUTOMATED 544 10^3/uL (150-450)
[2025-03-12 06:46] LABS: ALT/SGPT 128 U/L (7.0-40); AST/SGOT 65 U/L (<34); CALCIUM LEVEL 9.4 MG/DL (8.5-10.1); CARBON DIOXIDE LEVEL 28 MMOL/L (20-31); CHLORIDE LEVEL 98 MMOL/L (98-107); CREATININE FOR GFR 0.70 MG/DL (0.70-1.30); GLOMERULAR FILTRATION RATE > 90.0 (>56); MAGNESIUM LEVEL 2.1 MG/DL (1.8-2.4); POTASSIUM SERUM 4.0 MMOL/L (3.5-5.1); SODIUM LEVEL 137 MMOL/L (136-145)
[2025-03-12 06:51] LABS: C REACTIVE PROTEIN QUANTITATIV 16.60 MG/DL (<1.0)
[2025-03-12] MEDS: IBUPROFEN 600 MG TAB PO PRN (21:14)
[2025-03-13 03:21] VITALS: BP 98/63; TEMP 97.2; O2SAT 95
[2025-03-13 06:26] LABS: BASO # 0.1 10^3/uL (0.0-0.2); BASO % 0.7 % (0.0-1.0); EOS # 0.6 10^3/uL (0.0-0.5); EOS % 4.5 % (0.0-3.0); LYMPH # 2.2 10^3/uL (1.5-5.0); LYMPH % 17.9 % (24.0-44.0); MONO # 1.5 10^3/uL (0.0-0.8); MONO % 12.5 % (2.0-8.0); NEUTROPHILS # 7.7 10^3/uL (1.5-8.5); NEUTROPHILS % 63.4 % (36.0-66.0); PLATELET COUNT, AUTOMATED 537 10^3/uL (150-450)
[2025-03-13 07:14] LABS: ALT/SGPT 153 U/L (7.0-40); AST/SGOT 103 U/L (<34); C REACTIVE PROTEIN QUANTITATIV 14.46 MG/DL (<1.0); CALCIUM LEVEL 8.6 MG/DL (8.5-10.1); CARBON DIOXIDE LEVEL 28 MMOL/L (20-31); CHLORIDE LEVEL 99 MMOL/L (98-107); CREATININE FOR GFR 0.66 MG/DL (0.70-1.30); GLOMERULAR FILTRATION RATE > 90.0 (>56); MAGNESIUM LEVEL 2.0 MG/DL (1.8-2.4); POTASSIUM SERUM 3.8 MMOL/L (3.5-5.1); SODIUM LEVEL 138 MMOL/L (136-145)
[2025-03-13 07:27] VITALS: BP 108/65; TEMP 98.6; O2SAT 98
[2025-03-13 12:10] VITALS: BP 119/58; TEMP 97.7; O2SAT 96
[2025-03-13 15:40] VITALS: BP 139/62; TEMP 98.4; O2SAT 96
[2025-03-13 20:00] VITALS: BP 122/66; TEMP 102; O2SAT 95
[2025-03-14] VITALS (11 sets, daily range): BP systolic 90–125; BP diastolic 55–64; TEMP 97–100.8; O2SAT 96–100
[2025-03-14 07:12] LABS: BASO # 0.1 10^3/uL (0.0-0.2); BASO % 1.0 % (0.0-1.0); EOS # 0.6 10^3/uL (0.0-0.5); EOS % 5.7 % (0.0-3.0); LYMPH # 1.8 10^3/uL (1.5-5.0); LYMPH % 17.9 % (24.0-44.0); MONO # 1.5 10^3/uL (0.0-0.8); MONO % 14.3 % (2.0-8.0); NEUTROPHILS # 6.0 10^3/uL (1.5-8.5); NEUTROPHILS % 59.8 % (36.0-66.0); PLATELET COUNT, AUTOMATED 600 10^3/uL (150-450)
[2025-03-14 07:36] LABS: ALT/SGPT 196 U/L (7.0-40); AST/SGOT 118 U/L (<34); CALCIUM LEVEL 8.8 MG/DL (8.5-10.1); CARBON DIOXIDE LEVEL 29 MMOL/L (20-31); CHLORIDE LEVEL 101 MMOL/L (98-107); CREATININE FOR GFR 0.64 MG/DL (0.70-1.30); GLOMERULAR FILTRATION RATE > 90.0 (>56); MAGNESIUM LEVEL 1.9 MG/DL (1.8-2.4); POTASSIUM SERUM 3.8 MMOL/L (3.5-5.1); SODIUM LEVEL 140 MMOL/L (136-145)
[2025-03-14 07:46] LABS: C REACTIVE PROTEIN QUANTITATIV 10.01 MG/DL (<1.0)
[2025-03-14] MEDS ORDERED: **NOTE PATIENT COMMENT** MISC XX SCH (10:00)
[2025-03-14] MEDS: CYCLOBENZAPRINE 5 MG TABLET PO PRN (15:20)
[2025-03-15] VITALS (10 sets, daily range): BP systolic 97–126; BP diastolic 55–65; TEMP 97.4–100.3; O2SAT 94–99
[2025-03-15 06:59] LABS: BASO # 0.1 10^3/uL (0.0-0.2); BASO % 1.4 % (0.0-1.0); EOS # 0.6 10^3/uL (0.0-0.5); EOS % 6.2 % (0.0-3.0); LYMPH # 1.9 10^3/uL (1.5-5.0); LYMPH % 19.4 % (24.0-44.0); MONO # 1.2 10^3/uL (0.0-0.8); MONO % 12.2 % (2.0-8.0); NEUTROPHILS # 5.7 10^3/uL (1.5-8.5); NEUTROPHILS % 59.4 % (36.0-66.0); PLATELET COUNT, AUTOMATED 679 10^3/uL (150-450)
[2025-03-15 07:32] LABS: C REACTIVE PROTEIN QUANTITATIV 7.55 MG/DL (<1.0)
[2025-03-15 07:33] LABS: ALT/SGPT 179 U/L (7.0-40); AST/SGOT 88 U/L (<34); CALCIUM LEVEL 8.8 MG/DL (8.5-10.1); CARBON DIOXIDE LEVEL 31 MMOL/L (20-31); CHLORIDE LEVEL 102 MMOL/L (98-107); CREATININE FOR GFR 0.62 MG/DL (0.70-1.30); GLOMERULAR FILTRATION RATE > 90.0 (>56); MAGNESIUM LEVEL 1.9 MG/DL (1.8-2.4); POTASSIUM SERUM 4.5 MMOL/L (3.5-5.1); SODIUM LEVEL 141 MMOL/L (136-145)
[2025-03-16 03:31] VITALS: BP 106/64; TEMP 98.9; O2SAT 95
[2025-03-16 06:03] LABS: BASO # 0.1 10^3/uL (0.0-0.2); BASO % 1.3 % (0.0-1.0); EOS # 0.6 10^3/uL (0.0-0.5); EOS % 7.0 % (0.0-3.0); LYMPH # 2.0 10^3/uL (1.5-5.0); LYMPH % 24.7 % (24.0-44.0); MONO # 1.1 10^3/uL (0.0-0.8); MONO % 13.0 % (2.0-8.0); NEUTROPHILS # 4.3 10^3/uL (1.5-8.5); NEUTROPHILS % 52.1 % (36.0-66.0); PLATELET COUNT, AUTOMATED 689 10^3/uL (150-450)
[2025-03-16 06:32] LABS: ALT/SGPT 162 U/L (7.0-40); AST/SGOT 76 U/L (<34); CALCIUM LEVEL 8.8 MG/DL (8.5-10.1); CARBON DIOXIDE LEVEL 30 MMOL/L (20-31); CHLORIDE LEVEL 100 MMOL/L (98-107); CREATININE FOR GFR 0.70 MG/DL (0.70-1.30); GLOMERULAR FILTRATION RATE > 90.0 (>56); MAGNESIUM LEVEL 1.9 MG/DL (1.8-2.4); POTASSIUM SERUM 4.3 MMOL/L (3.5-5.1); SODIUM LEVEL 140 MMOL/L (136-145)
[2025-03-16 08:00] VITALS: BP 114/75; TEMP 97.2; O2SAT 94
[2025-03-16] MEDS: SUMAtriptan SUCCINATE 50MG TABLET PO PRN (10:47)
[2025-03-16 11:48] VITALS: BP 128/60; TEMP 97.6; O2SAT 99
[2025-03-16 19:21] VITALS: BP 120/67; TEMP 98.8; O2SAT 98
[2025-03-17 03:26] VITALS: BP 106/60; TEMP 97.7; O2SAT 97
[2025-03-17 06:03] LABS: PLATELET COUNT, AUTOMATED 733 10^3/uL (150-450)
[2025-03-17 06:25] LABS: ALT/SGPT 125 U/L (7.0-40); AST/SGOT 46 U/L (<34); CALCIUM LEVEL 8.7 MG/DL (8.5-10.1); CARBON DIOXIDE LEVEL 31 MMOL/L (20-31); CHLORIDE LEVEL 101 MMOL/L (98-107); CREATININE FOR GFR 0.65 MG/DL (0.70-1.30); GLOMERULAR FILTRATION RATE > 90.0 (>56); POTASSIUM SERUM 4.1 MMOL/L (3.5-5.1); SODIUM LEVEL 141 MMOL/L (136-145)
[2025-03-17 07:46] VITALS: BP 111/60; TEMP 97.3; O2SAT 98
[2025-03-17 11:33] VITALS: BP 120/71; TEMP 96.6; O2SAT 98
[2025-03-17 16:23] VITALS: BP 124/69; TEMP 97.1; O2SAT 98
[2025-03-17 19:21] VITALS: BP 109/67; TEMP 97.5; O2SAT 98
[2025-03-18 03:04] VITALS: BP 101/59; TEMP 97; O2SAT 98
[2025-03-18 06:11] LABS: PLATELET COUNT, AUTOMATED 701 10^3/uL (150-450)
[2025-03-18 06:42] LABS: ALT/SGPT 101 U/L (7.0-40); AST/SGOT 38 U/L (<34); CALCIUM LEVEL 9.3 MG/DL (8.5-10.1); CARBON DIOXIDE LEVEL 31 MMOL/L (20-31); CHLORIDE LEVEL 101 MMOL/L (98-107); CREATININE FOR GFR 0.69 MG/DL (0.70-1.30); GLOMERULAR FILTRATION RATE > 90.0 (>56); POTASSIUM SERUM 4.4 MMOL/L (3.5-5.1); SODIUM LEVEL 141 MMOL/L (136-145)
[2025-03-18 07:19] VITALS: BP 137/72; TEMP 97.9; O2SAT 98
[2025-03-18 16:00] VITALS: BP 108/63; TEMP 97.9; O2SAT 99
[2025-03-18 20:11] VITALS: BP 113/65; TEMP 98.2; O2SAT 97
[2025-03-18 23:31] VITALS: BP 128/58; TEMP 97; O2SAT 96
[2025-03-19 04:36] VITALS: BP 111/65; TEMP 97; O2SAT 96
[2025-03-19 06:44] LABS: PLATELET COUNT, AUTOMATED 620 10^3/uL (150-450)
[2025-03-19 07:06] LABS: ALT/SGPT 86 U/L (7.0-40); AST/SGOT 36 U/L (<34); CALCIUM LEVEL 8.8 MG/DL (8.5-10.1); CARBON DIOXIDE LEVEL 27 MMOL/L (20-31); CHLORIDE LEVEL 103 MMOL/L (98-107); CREATININE FOR GFR 0.72 MG/DL (0.70-1.30); GLOMERULAR FILTRATION RATE > 90.0 (>56); POTASSIUM SERUM 4.3 MMOL/L (3.5-5.1); SODIUM LEVEL 143 MMOL/L (136-145)
[2025-03-19 07:50] VITALS: BP 123/71; TEMP 97.5; O2SAT 100
[2025-03-19 15:29] LABS: IRON (FE) 27 UG/DL (65-175)
[2025-03-19 15:30] LABS: PERCENT SATURATION 10.1 % (19.7-50.0)
[2025-03-19 15:35] LABS: VITAMIN B12 LEVEL 583 PG/ML (211-911)
[2025-03-19 16:00] VITALS: BP 108/64; TEMP 98; O2SAT 96
[2025-03-19 19:00] VITALS: BP 119/82; TEMP 98.5; O2SAT 98
[2025-03-19] MEDS: TAMSULOSIN 0.4 MG CAP PO SCH (20:03)
[2025-03-20] VITALS: BP 116/64; TEMP 98.4; O2SAT 95
[2025-03-20 03:20] VITALS: BP 133/71; TEMP 94.6; O2SAT 96
[2025-03-20 07:15] LABS: PLATELET COUNT, AUTOMATED 659 10^3/uL (150-450)
[2025-03-20 07:48] LABS: ALT/SGPT 77 U/L (7.0-40); AST/SGOT 35 U/L (<34); CALCIUM LEVEL 9.2 MG/DL (8.5-10.1); CARBON DIOXIDE LEVEL 30 MMOL/L (20-31); CHLORIDE LEVEL 99 MMOL/L (98-107); CREATININE FOR GFR 0.87 MG/DL (0.70-1.30); GLOMERULAR FILTRATION RATE > 90.0 (>56); POTASSIUM SERUM 4.6 MMOL/L (3.5-5.1); SODIUM LEVEL 140 MMOL/L (136-145)
[2025-03-20 08:16] LABS: C REACTIVE PROTEIN QUANTITATIV 2.33 MG/DL (<1.0)
[2025-03-20 11:40] VITALS: BP 109/53; TEMP 97.1; O2SAT 100
[2025-03-20] MEDS: FERRIC CARBOXYMALTOSE INJ 750 MG, VIAL MATE ADAPTER 1 EACH in NS 100 ML IV ONE (13:50)
[2025-03-20 16:42] LABS: KETONE, URINE AUTO RFX NEGATIVE (NEGATIVE); LEUKOCYTE ESTERASE UR AUTO RFX NEGATIVE (NEGATIVE); MUCUS, URINE RFX SMALL (NEGATIVE); NITRITE, URINE AUTO RFX NEGATIVE (NEGATIVE); RBC, URINE AUTO RFX 24 /HPF (0-3); SQUAM EPITHELIAL CELL UR AURFX 0 /HPF (0-6); WBC, URINE AUTO RFX 3 /HPF (0-3)
[2025-03-20] MEDS: NS 500 ML IV ONE (18:55)
[2025-03-20 20:00] VITALS: BP 115/67; TEMP 98.2; O2SAT 96
[2025-03-21 04:00] VITALS: BP 120/73; TEMP 98.3; O2SAT 98
[2025-03-21 07:31] VITALS: BP 115/68; TEMP 97.4; O2SAT 97
[2025-03-21 08:13] LABS: PLATELET COUNT, AUTOMATED 603 10^3/uL (150-450)
[2025-03-21 08:23] VITALS: BP 118/72
[2025-03-21 08:39] LABS: CALCIUM LEVEL 9.3 MG/DL (8.5-10.1); CARBON DIOXIDE LEVEL 29 MMOL/L (20-31); CHLORIDE LEVEL 101 MMOL/L (98-107); CREATININE FOR GFR 0.81 MG/DL (0.70-1.30); GLOMERULAR FILTRATION RATE > 90.0 (>56); POTASSIUM SERUM 4.5 MMOL/L (3.5-5.1); SODIUM LEVEL 141 MMOL/L (136-145)
[2025-03-21] MEDS ORDERED: TAMS-18 PO (10:16)
[2025-03-21] MEDS ORDERED: COLA100C5 PO (10:16)
[2025-03-21] MEDS ORDERED: BACI50OI TOP (10:16)
[2025-03-21 10:25] LABS: C REACTIVE PROTEIN QUANTITATIV 3.10 MG/DL (<1.0)
[2025-03-21 11:52] VITALS: BP 98/62; TEMP 97.3; O2SAT 96
== END 2025-03-21 12:44 | DRG 29 ==
LOC: M ED 09:30 → M ED INP 19:09 → M ICU 19:53 → M PCU 03-06 13:33 → M MS4PR 03-18 23:25
PROVIDERS: ADMIT Internal Medicine Pulmonary Disease; ATTEND Internal Medicine
PROC: 0RG40AJ Fusion of Cervicothoracic Vertebral Joint with Interbody Fusion Device, Posterior Approach, Anterior Column, Open Approach (ICD-10-PCS; principal; 2025-03-05)
DX: S14.125A Central cord syndrome at C5 level of cervical spinal cord, initial encounter (principal); F11.20 Opioid dependence, uncomplicated; J98.11 Atelectasis; S14.126A Central cord syndrome at C6 level of cervical spinal cord, initial encounter; S14.127A Central cord syndrome at C7 level of cervical spinal cord, initial encounter; I10 Essential (primary) hypertension; R53.1 Weakness; M17.0 Bilateral primary osteoarthritis of knee; R19.7 Diarrhea, unspecified; R10.9 Unspecified abdominal pain; M79.2 Neuralgia and neuritis, unspecified; R55 Syncope and collapse; M54.2 Cervicalgia; F17.210 Nicotine dependence, cigarettes, uncomplicated; M48.02 Spinal stenosis, cervical region; R33.9 Retention of urine, unspecified; R94.5 Abnormal results of liver function studies; R74.01 Elevation of levels of liver transaminase levels; E87.6 Hypokalemia; G89.4 Chronic pain syndrome; F32.A Depression, unspecified; R41.0 Disorientation, unspecified; R50.82 Postprocedural fever; R42 Dizziness and giddiness; F10.10 Alcohol abuse, uncomplicated; D64.9 Anemia, unspecified; G25.0 Essential tremor; I73.9 Peripheral vascular disease, unspecified; Z79.899 Other long term (current) drug therapy; Z79.82 Long term (current) use of aspirin; Z88.2 Allergy status to sulfonamides; Z88.0 Allergy status to penicillin; Z91.041 Radiographic dye allergy status; W18.30XA Fall on same level, unspecified, initial encounter; Y92.009 Unspecified place in unspecified non-institutional (private) residence as the place of occurrence of the external cause

== ENCOUNTER 2025-03-21 10:43 | Inpatient (IN) | payer MEDICARE ==
[~2025-03-21] VITALS: Ht 162.6 cm; Wt 55.0 kg
[~2025-03-21 10:43] MED LIST changes: +BACI50OI TOP; +COLA100C5 PO; +MELO7.5T35 PO; +MOTR200T44 PO; +POTA-298 PO; +PREG100C2 PO; +PROP40TA62 PO
[2025-03-21] MEDS ORDERED: ONDANSETRON 4MG ORAL DISINTEGRATING TAB SL PRN (11:55)
[2025-03-21] MEDS ORDERED: SENNA 8.6 MG TAB PO PRN (12:05)
[2025-03-21] MEDS ORDERED: MOM 30 ML SUSPENSION UDC PO PRN (12:05)
[2025-03-21] MEDS ORDERED: SIMETHICONE 80MG CHEW TAB PO PRN (12:05)
[2025-03-21] MEDS ORDERED: BISACODYL 5 MG TAB PO PRN (12:05)
[2025-03-21] MEDS ORDERED: MAALOX 30 ML SUSP *UDC PO PRN (12:05)
[2025-03-21] MEDS ORDERED: POLYVINYL ALCOHOL OPHTH SOLN 15ML (LIQUITEARS) OU PRN (12:10)
[2025-03-21] MEDS ORDERED: SUMAtriptan SUCCINATE 50MG TABLET PO PRN (12:10)
[2025-03-21] MEDS ORDERED: MECLIZINE 25 MG TABLET PO PRN (12:10)
[2025-03-21 12:48] VITALS: BP 127/75; TEMP 97.5; O2SAT 95
[2025-03-21] MEDS: PROPRANOLOL 10 MG TAB PO SCH (13:00)
[2025-03-21] MEDS: IBUPROFEN 600 MG TAB PO PRN (13:40)
[2025-03-21 13:42] VITALS: BP 98/62
[2025-03-21 19:28] VITALS: BP 128/74; TEMP 98.3
[2025-03-21] MEDS: AMITRIPTYLINE 50MG TAB PO SCH (20:18)
[2025-03-21] MEDS: TOPIRAMATE 100 MG TAB PO SCH (20:19)
[2025-03-21] MEDS: PREGABALIN 75 MG CAP PO SCH (20:19)
[2025-03-21] MEDS: MIRTAZAPINE 15 MG TAB PO SCH (20:19)
[2025-03-21] MEDS: TAMSULOSIN 0.4 MG CAP PO SCH (20:19)
[2025-03-21] MEDS: FAMOTIDINE 20 MG TAB PO SCH (20:20)
[2025-03-22 04:00] VITALS: BP 100/59; TEMP 97.3
[2025-03-22 06:24] LABS: BASO # 0.1 10^3/uL (0.0-0.2); BASO % 0.7 % (0.0-1.0); EOS # 0.5 10^3/uL (0.0-0.5); EOS % 3.6 % (0.0-3.0); LYMPH # 1.9 10^3/uL (1.5-5.0); LYMPH % 13.3 % (24.0-44.0); MONO # 1.3 10^3/uL (0.0-0.8); MONO % 9.5 % (2.0-8.0); NEUTROPHILS # 10.1 10^3/uL (1.5-8.5); NEUTROPHILS % 72.5 % (36.0-66.0); PLATELET COUNT, AUTOMATED 562 10^3/uL (150-450)
[2025-03-22 06:53] LABS: ALT/SGPT 43 U/L (7.0-40); AST/SGOT 17 U/L (<34); CALCIUM LEVEL 9.5 MG/DL (8.5-10.1); CARBON DIOXIDE LEVEL 27 MMOL/L (20-31); CHLORIDE LEVEL 105 MMOL/L (98-107); CREATININE FOR GFR 0.85 MG/DL (0.70-1.30); GLOMERULAR FILTRATION RATE > 90.0 (>56); POTASSIUM SERUM 4.4 MMOL/L (3.5-5.1); SODIUM LEVEL 142 MMOL/L (136-145)
[2025-03-22] MEDS: FOLIC ACID 1 MG TAB PO SCH (10:02)
[2025-03-22] MEDS: MULTIVITAMINS/MINERALS THERAP 1 TAB PO SCH (10:02)
[2025-03-22] MEDS: ENOXAPARIN 40 MG/0.4 ML SYRINGE (J1650 PER 10MG) SC SCH (10:04)
[2025-03-22] MEDS: MUPIROCIN 2% OINT 22 GM TUBE TOP SCH (10:05)
[2025-03-22 12:00] VITALS: BP 100/63; TEMP 97.2; O2SAT 97
[2025-03-22 20:00] VITALS: BP 124/81; TEMP 98.1; O2SAT 98
[2025-03-23 06:00] VITALS: BP 105/59; TEMP 97.3; O2SAT 98
[2025-03-23 11:38] VITALS: BP 110/67; TEMP 98.4; O2SAT 97
[2025-03-23 20:00] VITALS: BP 102/58; TEMP 98.6; O2SAT 96
[2025-03-24 04:00] VITALS: BP 117/57; TEMP 97.3; O2SAT 99
[2025-03-24 12:06] VITALS: BP 109/65; TEMP 98.9; O2SAT 96
[2025-03-24] MEDS: CYCLOBENZAPRINE 5 MG TABLET PO PRN (16:14)
[2025-03-24 20:00] VITALS: BP 104/69; TEMP 97.8; O2SAT 98
[2025-03-25 04:00] VITALS: BP 109/65; TEMP 97.8; O2SAT 97
[2025-03-25 12:00] VITALS: BP 110/65; TEMP 98; O2SAT 9
[2025-03-25 19:27] VITALS: BP 106/60; TEMP 97.2; O2SAT 99
[2025-03-26 03:55] VITALS: BP 100/55; TEMP 97.2; O2SAT 100
[2025-03-26 12:00] VITALS: BP 110/63; TEMP 98.4; O2SAT 100
[2025-03-26] MEDS ORDERED: CYCL5TAB4 PO (15:46)
[2025-03-26] MEDS ORDERED: FAMO20TA PO (15:46)
[2025-03-26] MEDS ORDERED: TAMS-18 PO (15:46)
[2025-03-26] MEDS ORDERED: IBUP-1022 PO (15:46)
[2025-03-26] MEDS ORDERED: OXYC-517 PO (15:46)
[2025-03-26 19:42] VITALS: BP 114/68; TEMP 97.6; O2SAT 98
[2025-03-27 03:45] VITALS: BP 106/62; TEMP 97.4; O2SAT 100
[2025-03-27 06:40] VITALS: BP 106/62
== END 2025-03-27 12:00 | disposition home health service (06) | DRG 949 ==
LOC: M PM&R 12:45
PROVIDERS: ADMIT Physical Medicine & Rehabilitation; ATTEND Physical Medicine & Rehabilitation
DX: S14.125D Central cord syndrome at C5 level of cervical spinal cord, subsequent encounter (principal); F11.20 Opioid dependence, uncomplicated; S14.126 Central cord syndrome at C6 level of cervical spinal cord; S14.12 Central cord syndrome of cervical spinal cord; R10.9 Unspecified abdominal pain; G43.909 Migraine, unspecified, not intractable, without status migrainosus; M19.90 Unspecified osteoarthritis, unspecified site; F10.10 Alcohol abuse, uncomplicated; F32.A Depression, unspecified; F17.210 Nicotine dependence, cigarettes, uncomplicated; G47.00 Insomnia, unspecified; D72.829 Elevated white blood cell count, unspecified; R31.9 Hematuria, unspecified; I73.9 Peripheral vascular disease, unspecified; R42 Dizziness and giddiness; R33.9 Retention of urine, unspecified; Z79.899 Other long term (current) drug therapy; Z88.2 Allergy status to sulfonamides; Z88.0 Allergy status to penicillin; Z91.041 Radiographic dye allergy status; M48.02 Spinal stenosis, cervical region; D64.9 Anemia, unspecified; G25.0 Essential tremor

== ENCOUNTER → 2025-04-18 | Outpatient (CLI) | payer MEDICARE ==
[~2025-04-18] MED LIST changes: +CYCL5TAB4 PO; +FAMO20TA PO; +IBUP-1022 PO; +OXYC-517 PO
== END ==
LOC: M RAD 15:19
PROVIDERS: ATTEND Physician Assistant
DX: S14.125A Central cord syndrome at C5 level of cervical spinal cord, initial encounter (principal); Y93.9 Activity, unspecified; Y92.9 Unspecified place or not applicable

== ENCOUNTER → 2025-05-17 | Outpatient (CLI) | payer MEDICARE ==
[~2025-05-17] MED LIST changes: -IBUP-1022 PO; +IBUP600T42 PO
== END ==
LOC: M RAD 08:24
PROVIDERS: ATTEND Neurological Surgery
DX: M48.02 Spinal stenosis, cervical region (principal)

== ENCOUNTER → 2025-05-22 | Outpatient (CLI) | payer MEDICARE | LOC: M RAD 13:54 | PROVIDERS: ATTEND Neurological Surgery | DX: M48.02 Spinal stenosis, cervical region (principal) ==

== ENCOUNTER → 2025-07-04 | Outpatient (REF) | payer MEDICARE ==
[2025-07-04 14:58] LABS: PLATELET COUNT, AUTOMATED 216 10^3/uL (150-450)
[2025-07-04 15:05] LABS: ESTIMATED AVERAGE GLUCOSE 111.0 MG/DL (60-110)
[2025-07-04 15:09] LABS: ALT/SGPT 38.0 U/L (7.0-40); AST/SGOT 40.0 U/L (<34); CALCIUM LEVEL 9.1 MG/DL (8.5-10.1); CARBON DIOXIDE LEVEL 26.0 MMOL/L (20-31); CHLORIDE LEVEL 109.0 MMOL/L (98-107); CHOLESTEROL LEVEL 142.0 MG/DL (<200); CHOLESTEROL RISK RATIO 2.69 (<5); CREATININE FOR GFR 1.09 MG/DL (0.70-1.30); GLOMERULAR FILTRATION RATE 78.2 (>56); LDL CHOLESTEROL 23.7 MG/DL (<100); NON-HDL-C 89.3 MG/DL; POTASSIUM SERUM 4.1 MMOL/L (3.5-5.1); SODIUM LEVEL 144.0 MMOL/L (136-145); TRIGLYCERIDES LEVEL 328.0 MG/DL (<150); VITAMIN B12 LEVEL 333.0 PG/ML (211-911)
== END ==
LOC: M SFHCADAM 08:38
PROVIDERS: ATTEND Physician Assistant
DX: J47.9 Bronchiectasis, uncomplicated (principal); R74.8 Abnormal levels of other serum enzymes; R19.7 Diarrhea, unspecified; F10.90 Alcohol use, unspecified, uncomplicated; F17.210 Nicotine dependence, cigarettes, uncomplicated; Z71.6 Tobacco abuse counseling; Z79.899 Other long term (current) drug therapy

== ENCOUNTER → 2025-07-05 | Outpatient (CLI) | payer MEDICARE | LOC: M RAD 08:38 | PROVIDERS: ATTEND Neurological Surgery | DX: M48.02 Spinal stenosis, cervical region (principal) ==

== ENCOUNTER → 2025-08-12 | Outpatient (CLI) | payer MEDICARE | LOC: M SOG 07:33 | PROVIDERS: ATTEND Orthopaedic Surgery | DX: M25.521 Pain in right elbow (principal) ==

== ENCOUNTER → 2025-09-03 | Outpatient (CLI) | payer MEDICARE | LOC: M RAD 13:50 | PROVIDERS: ATTEND Physician Assistant | DX: M48.02 Spinal stenosis, cervical region (principal); Z98.1 Arthrodesis status; M43.12 Spondylolisthesis, cervical region; M47.812 Spondylosis without myelopathy or radiculopathy, cervical region ==